=== PATIENT | male | born 1965 | race Caucasian/White ===

== ENCOUNTER 2017-02-09 18:08 | Emergency (ER) | payer BC ==
[~2017-02-09] VITALS: Ht 175.3 cm; Wt 59.0 kg
[~2017-02-09 18:08] MED LIST: ALPR.25T PO; ALPR0.5T7 PO; ALPR0.5T72 PO; ALPR1TAB7 PO; AMOX-358 PO; CITA20TA12 PO; CYCL10TA9 PO; DESV50TA PO; DOXY100C2 PO; DULO60CA58; DULO60CA58 PO; HYDR-2890 PO; HYDR-3583 PO; HYDR-3820 PO; HYDR-757 PO; IBP800T PO; IBUP800T26 PO; LORA2TAB PO; METH4TAB PO; MULT-608; MULT-963 PO; MULT-974 PO; NAPR500T3 PO; OXYC-12 PO; PRD50T PO; TRAZ-28 PO; VITAMIN B 12
--- NOTE | 2017-02-09 18:18 | ED Fall/Injury ---
General Chief Complaint: Trauma-Non Activation Stated Complaint: FALL Source: EMS Exam Limitations: no limitations History of Present Illness Time seen by provider: 18:13 Initial Comments Brought to ER in a rigid cervical collar by [facility] with reports of a fall. Apparently this fall was not witnessed but the heard a "thud" and when she entered the room she found Alice laying on the floor. He has been somnolent during his trip here according to paramedics. Patient is well-known to this emergency room with a history of alcohol intoxication and depression. Patient reports that he's had about 4 beers today. The patient himself has no complaints other than left ear pain which has been present since August. Occurred: just prior to arrival Severity: moderate Injuries/Pain Location: other Associated Symptoms (Fall): Denies Symptoms Allergies and Home Medications Allergies Coded Allergies: No Known Drug Allergies (Unverified , 06/06/14) Home Medications Lorazepam 2 Mg Tablet, 2 MG PO TID PRN for ANXIETY, (Reported) Multivitamin 1 Each Tablet, 1 TAB PO DAILY, (Reported) Trazodone HCl 50 Mg Tablet, 50 MG PO HS PRN for SLEEP, (Reported) Constitutional: see HPI Eyes: No Symptoms Reported Ears, Nose, Mouth, Throat: no symptoms reported Respiratory: no symptoms reported Cardiovascular: no symptoms reported Genitourinary: no symptoms reported Musculoskeletal: no symptoms reported Skin: no symptoms reported Psychiatric/Neurological: See HPI Past Htbdcpt-Mjenzg-Vpiawq Hx Patient Social History Drug of Choice: perscription medications only Type Used: Cigarettes Recent Hopitalizations: No Immunizations Up To Date Tetanus Booster (TDap): Unknown Seasonal Allergies Seasonal Allergies: No Surgeries HX Surgeries: Yes (UMBILICAL HERNIA REPAIR; CARDIAC CATH--NO INTERVENTION) Surgeries: Abdominal Respiratory Hx Respiratory Disorders: Yes Respiratory Disorders: COPD Cardiovascular Hx Cardiac Disorders: No (CARDIAC CATH--NO INTERVENTION) Neurological Hx Neurological Disorders: Yes Reproductive System Hx Reproductive Disorders: No Sexually Transmitted Disease: No HIV/AIDS: No Genitourinary Hx Genitourinary Disorders: No Gastrointestinal Hx Gastrointestinal Disorders: Yes (HEPATITIS C --NO TREATMENT; UMBILICAL HERNIA REPAIR) Gastrointestinal Disorders: Hepatitis Musculoskeletal Hx Musculoskeletal Disorders: Yes (CHRONIC NECK PAIN ) Endocrine Hx Endocrine Disorders: No HEENT HX ENT Disorders: No Cancer Hx Cancer: No Psychosocial Hx Psychiatric Problems: Yes (EXTENSIVE PSYCH, POLYSUBSTANCE ABUSE, MULTIPLE PSYCH ADMITS) Behavioral Health Disorders: Anxiety, Suicide Attempts, Depression Integumentary HX Skin/Integumentary Disorder: No Blood Transfusions Hx Blood Disorders: No Adverse Reaction to a Blood Tr: No Family Medical History Family Medial History: Patient reports no known family medical history. Physical Exam Vital Signs Vital Sign - Last 12Hours 02/09/17 18:11 Temp 98.0 Pulse 78 Resp 16 B/P (MAP) 117/80 Pulse Ox 98 Capillary Refill : General Appearance: WD/WN, no apparent distress HEENT: PERRL/EOMI, normal ENT inspection Neck: non-tender, other (patient is in a rigid cervical collar but denies any neck pain) Respiratory: normal breath sounds, no respiratory distress, no accessory muscle use Gastrointestinal: normal bowel sounds, non tender, soft Extremities: normal range of motion, non-tender Neurologic/Psychiatric: oriented x 3 Skin: normal color, warm/dry Omar Coma Score Best Eye Response: (4) Open Spontaneously Best Verbal Response: (5) Oriented Best Motor Response: (6) Obeys Commands [place] Total: 15 Progress/Results/Core Measures Results/Orders Lab Results Laboratory Tests Test 02/09/17 18:15 02/09/17 18:23 02/09/17 18:39 Range/Units Glucometer 93 70-110 MG/DL White Blood Count 8.2 4.3-11.0 10^3/uL Red Blood Count 4.18 L 4.35-5.85 10^6/uL Hemoglobin 13.7 13.3-17.7 G/DL Hematocrit 39 L 40-54 % Mean Corpuscular Volume 92 80-99 FL Mean Corpuscular Hemoglobin 33 25-34 PG Mean Corpuscular Hemoglobin Concent 36 32-36 G/DL Red Cell Distribution Width 13.2 10.0-14.5 % Platelet Count 265 130-400 10^3/uL Mean Platelet Volume 9.1 7.4-10.4 FL Neutrophils (%) (Auto) 49 42-75 % Lymphocytes (%) (Auto) 40 12-44 % Monocytes (%) (Auto) 7 0-12 % Eosinophils (%) (Auto) 2 0-10 % Basophils (%) (Auto) 1 0-10 % Neutrophils # (Auto) 4.0 1.8-7.8 X 10^3 Lymphocytes # (Auto) 3.3 1.0-4.0 X 10^3 Monocytes # (Auto) 0.6 0.0-1.0 X 10^3 Eosinophils # (Auto) 0.2 0.0-0.3 10^3/uL Basophils # (Auto) 0.1 0.0-0.1 10^3/uL Prothrombin Time 12.6 12.2-14.7 SEC INR Comment 1.0 0.8-1.4 Sodium Level 133 L 135-145 MMOL/L Potassium Level 3.8 3.6-5.0 MMOL/L Chloride Level 99 98-107 MMOL/L Carbon Dioxide Level 24 21-32 MMOL/L Anion Gap 10 5-14 MMOL/L Blood Urea Nitrogen 4 L 7-18 MG/DL Creatinine 0.73 0.60-1.30 MG/DL Estimat Glomerular Filtration Rate > 60 BUN/Creatinine Ratio 5 Glucose Level 88 70-105 MG/DL Calcium Level 8.2 L 8.5-10.1 MG/DL Total Bilirubin 0.3 0.1-1.0 MG/DL Aspartate Amino Transf (AST/SGOT) 18 5-34 U/L Alanine Aminotransferase (ALT/SGPT) 15 0-55 U/L Alkaline Phosphatase 37 L 40-136 U/L Troponin I < 0.30 <0.30 NG/ML Total Protein 6.1 L 6.4-8.2 G/DL Albumin 4.0 3.2-4.5 G/DL Serum Alcohol 251 H <10 MG/DL Urine Opiates Screen NEGATIVE NEGATIVE Urine Oxycodone Screen NEGATIVE NEGATIVE Urine Methadone Screen NEGATIVE NEGATIVE Urine Propoxyphene Screen NEGATIVE NEGATIVE Urine Barbiturates Screen NEGATIVE NEGATIVE Ur Tricyclic Antidepressants Screen NEGATIVE NEGATIVE Urine Phencyclidine Screen NEGATIVE NEGATIVE Urine Amphetamines Screen NEGATIVE NEGATIVE Urine Methamphetamines Screen NEGATIVE NEGATIVE Urine Benzodiazepines Screen POSITIVE H NEGATIVE Urine Cocaine Screen NEGATIVE NEGATIVE Urine Cannabinoids Screen NEGATIVE NEGATIVE My Orders Orders - PATRICIA GUNDERSON APRN Cbc With Automated Diff (02/09/17 18:12) Comprehensive Metabolic Panel (02/09/17 18:12) Ekg Tracing (02/09/17 18:12) Troponin I (02/09/17 18:12) Alcohol (02/09/17 18:12) Ct Head/Cervical Spine Wo (02/09/17 18:12) Drug Screen Stat (Urine) (02/09/17 18:20) Protime With Inr (02/09/17 18:35) Ns Iv 1000 Ml (Sodium Chloride 0.9%) (02/09/17 19:15) Vital Signs/I&O Vital Sign - Last 12Hours 02/09/17 18:11 Temp 98.0 Pulse 78 Resp 16 B/P (MAP) 117/80 Pulse Ox 98 Diagnostic Imaging Diagonstic Imaging: CT Comments NAME: ALICE [facility] REC#: [id number] PT STATUS: REG ER : 1965 PHYSICIAN: PATRICIA GUNDERSON EXTRACTIONS TECHNICIAN ADMIT DATE: 02/09/17/ER Draft Date of Exam:02/09/17 CT HEAD/CERVICAL SPINE WO PROCEDURE: CT head and CT cervical spine without contrast. TECHNIQUE: Multiple contiguous axial images were obtained through the brain and cervical spine without the use of intravenous contrast. Sagittal and coronal reformations through the cervical spine were then performed. INDICATION: Head and neck pain. Possible trauma. COMPARISON: Head and C-spine from 09/16/2016. FINDINGS: Head CT: No hyperdense mass or space-occupying mass. No hydrocephalus or midline shift. No evidence of territorial infarct. Basilar cisterns are patent. Small focus of encephalomalacia in the anterior right temporal region in the prior location of intraparenchymal hematoma. No focal scalp swelling. Nondisplaced mid occipital skull fracture has incompletely healed but remains anatomic in alignment. No new skull fracture. The paranasal sinuses and mastoid air cells are clear. Cervical spine CT: No acute fracture or traumatic malalignment. Mild degenerative disc space narrowing in the mid to lower cervical spine is similar, with small posterior disc ossified complex. No high-grade spinal stenosis by noncontrast CT. Multilevel neuroforaminal stenoses are unchanged and mild to moderate in severity due to uncovertebral joint hypertrophy. Airway is patent. No cervical lymphadenopathy. Visualized thyroid is normal. IMPRESSION: 1. No acute intracranial process. 2. No acute fracture or traumatic malalignment of the cervical spine. 3. Old nondisplaced fracture, midline of the occipital bone, is incompletely healed but remains in anatomic alignment. No new skull fracture. Dictated on workstation # [id number] Dict: 02/09/17 184 Trans: 02/09/17 1851 [facility] [id number] Interpreted by: RENO HILL MD Electronically signed by: Departure Communication Progress Notes 1929-cervical collar removed at this time. GCS 15. Patient is able to tell me what 2+ to his, when asked if he found a stamped addressed envelope on the sidewalk would he do with it, he replies "well I would take it to the post office". He denies any neck pain worse than his usual chronic neck pain and his alcohol level is only minimally elevated above his baseline alcohol level Impression Impression: Primary Impression: Alcoholism Additional Impression: Skull fracture with concussion with delayed healing Disposition: HOME, SELF-CARE Condition: Stable Departure-Patient Inst. Decision time for Depature: 19:25 Referrals: KARELY PONCE MD (PCP/Family) Primary Care Physician Patient Instructions: ALCOHOL AND SUBSTANCE ABUSE PATRICIA GUNDERSON APRN Feb 09, 2017 18:18
[2017-02-09 18:30] LABS: BASOPHILS # (AUTO) 0.1 10^3/uL (0.0-0.1); BASOPHILS % (AUTO) 1 % (0-10); EOSINOPHILS # (AUTO) 0.2 10^3/uL (0.0-0.3); EOSINOPHILS % (AUTO) 2 % (0-10); LYMPHOCYTES # (AUTO) 3.3 X 10^3 (1.0-4.0); LYMPHOCYTES % (AUTO) 40 % (12-44); MEAN CORPUSCULAR HEMOGLOBIN 33 PG (25-34); MEAN CORPUSCULAR HGB CONC 36 G/DL (32-36); MEAN CORPUSCULAR VOLUME 92 FL (80-99); MEAN PLATELET VOLUME 9.1 FL (7.4-10.4); MONOCYTES # (AUTO) 0.6 X 10^3 (0.0-1.0); MONOCYTES % (AUTO) 7 % (0-12); NEUTROPHILS % (AUTO) 49 % (42-75); PLATELET COUNT 265 10^3/uL (130-400); RED BLOOD COUNT 4.18 10^6/uL (4.35-5.85); RED CELL DISTRIBUTION WIDTH 13.2 % (10.0-14.5); WHITE BLOOD COUNT 8.2 10^3/uL (4.3-11.0)
[2017-02-09 18:43] LABS: PROTHROMBIN TIME PATIENT 12.6 SEC (12.2-14.7)
[2017-02-09 18:49] LABS: ALANINE AMINOTRANSFERASE 15 U/L (0-55); ALCOHOL 251 MG/DL (<10); ANION GAP 10 MMOL/L (5-14); ASPARTATE AMINO TRANSFERASE 18 U/L (5-34); BILIRUBIN,TOTAL 0.3 MG/DL (0.1-1.0); BLOOD UREA NITROGEN 4 MG/DL (7-18); BUN/CREATININE RATIO 5; CALCIUM 8.2 MG/DL (8.5-10.1); CARBON DIOXIDE 24 MMOL/L (21-32); CHLORIDE 99 MMOL/L (98-107); CREATININE SERUM 0.73 MG/DL (0.60-1.30); GFR ESTIMATED > 60; GLUCOSE 88 MG/DL (70-105); POTASSIUM 3.8 MMOL/L (3.6-5.0); SODIUM 133 MMOL/L (135-145); TOTAL PROTEIN 6.1 G/DL (6.4-8.2)
--- NOTE | 2017-02-09 18:51 | Diagnostic Imaging Report ---
PROCEDURE: CT head and CT cervical spine without contrast. TECHNIQUE: Multiple contiguous axial images were obtained through the brain and cervical spine without the use of intravenous contrast. Sagittal and coronal reformations through the cervical spine were then performed. INDICATION: Head and neck pain. Possible trauma. COMPARISON: Head and C-spine from 09/16/2016. FINDINGS: Head CT: No hyperdense mass or space-occupying mass. No hydrocephalus or midline shift. No evidence of territorial infarct. Basilar cisterns are patent. Small focus of encephalomalacia in the anterior right temporal region in the prior location of intraparenchymal hematoma. No focal scalp swelling. Nondisplaced mid occipital skull fracture has incompletely healed but remains anatomic in alignment. No new skull fracture. The paranasal sinuses and mastoid air cells are clear. Cervical spine CT: No acute fracture or traumatic malalignment. Mild degenerative disc space narrowing in the mid to lower cervical spine is similar, with small posterior disc ossified complex. No high-grade spinal stenosis by noncontrast CT. Multilevel neuroforaminal stenoses are unchanged and mild to moderate in severity due to uncovertebral joint hypertrophy. Airway is patent. No cervical lymphadenopathy. Visualized thyroid is normal. IMPRESSION: 1. No acute intracranial process. 2. No acute fracture or traumatic malalignment of the cervical spine. 3. Old nondisplaced fracture of the midline of the occipital bone, is incompletely healed but remains in anatomic alignment. No new skull fracture. Dictated by: Dictated on workstation # [id number]
[2017-02-09 18:55] LABS: TROPONIN I < 0.30 NG/ML (<0.30)
[2017-02-09] MEDS ORDERED: NS IV 1000 ML 1,000 ML IV SCH (19:15)
[2017-02-09 19:50] VITALS: BP 122/78
--- OUTSIDE RECORDS SUMMARY | 2017-02-25 13:42 | XMS REPORT | Continuity of Care Document ---
Author Author [facility] Organization [facility] Address Unknown Phone Unavailable Allergies Active Description Code Type Severity Reaction Onset Reported/Identified Relationship to Patient Clinical Status Yes No Known Drug Allergies [id number] Drug Allergy Unknown N/ A 06/06/2014 Medications Problems Date Dx Coded Attending Type Code Diagnosis Diagnosed By 02/02/2010 Ot 305.1 02/02/2010 Ot 682.3 02/02/2010 Ot 786.59 01/07/2011 Ot 789.09 02/04/2011 Ot 551.1 05/23/2011 Ot 305.1 TOBACCO USE DISORDER 05/23/2011 Ot 466.0 ACUTE BRONCHITIS 05/23/2011 Ot 786.05 SHORTNESS OF BREATH 12/23/2012 Ot 305.1 TOBACCO USE DISORDER 12/23/2012 Ot 786.50 CHEST PAIN NOS 02/20/2013 Ot 305.1 TOBACCO USE DISORDER 02/20/2013 Ot 786.50 CHEST PAIN NOS 02/20/2013 Ot 786.52 PAINFUL RESPIRATION 03/30/2013 KEERTHI BANKS DO Ot 719.43 JOINT PAIN-FOREARM 06/06/2014 ROSA WILLINGHAM Ot 338.29 06/06/2014 ROSA WILLINGHAM Ot 719.43 06/06/2014 ROSA WILLINGHAM Ot 847.0 06/06/2014 ROSA WILLINGHAM Ot 959.01 06/06/2014 ROSA WILLINGHAM Ot E815.1 09/05/2014 KIRSTEN CHERRY MD Ot 723.1 09/05/2014 DILIP SCHUSTER, KIRSTEN Cortes Ot 723.4 09/05/2014 DILIP SCHUSTER, KIRSTEN A Ot 723.5 10/31/2014 DILIP SCHUSTER, KIRSTEN A Ot 723.1 11/01/2014 DILIP SCHUSTER, KIRSTEN A Ot 723.1 12/12/2014 DILIP SCHUSTER, KIRSTEN A Ot 723.1 12/12/2014 PATRICIA GUNDERSON APRN Ot 723.4 12/12/2014 PATRICIA GUNDERSON CYBER ENGINEER Ot 784.2 12/22/2014 ROSARIO SCHUSTER, KARELY R Ot 303.00 12/22/2014 ROSARIO SCHUSTER, KARELY R Ot 305.1 12/22/2014 ROSARIO SCHUSTER, KARELY R Ot 466.0 01/04/2015 DILIP SCHUSTER, KIRSTEN A Ot 723.1 01/05/2015 DILIP SCHUSTER, KIRSTEN A Ot 723.1 01/06/2015 DILIP SCHUSTER, KIRSTEN A Ot 723.1 01/12/2015 DILIP SCHUSTER, KIRSTEN A Ot 723.1 02/27/2015 PENNY SCHUSTER, LIAM Sigala Ot 305.1 TOBACCO USE DISORDER 02/27/2015 PENNY SCHUSTER, LIAM Sigala Ot 786.50 CHEST PAIN NOS 02/27/2015 PENNY SCHUSTER, LIAM Sigala Ot 802.0 NASAL BONE FX-CLOSED 02/27/2015 LIAM FRANCIS MD Ot 920 CONTUSION FACE/SCALP/NCK 02/27/2015 LIAM FRANCIS MD Ot 922.1 CONTUSION OF CHEST WALL 02/27/2015 LIAM FRANCIS MD Ot E000.8 OTHER EXTERNAL CAUSE STATUS 02/27/2015 LIAM FRANCIS MD Ot E849.0 ACCIDENT IN HOME 02/27/2015 LIAM FRANCIS MD Ot E888.9 FALL NOS 02/27/2015 Ot 553.1 02/27/2015 Ot V72.63 02/27/2015 Ot V74.8 02/27/2015 Ot 729.5 02/27/2015 Ot 729.81 02/27/2015 Ot V15.51 03/15/2015 DILIP SCHUSTER, KIRSTEN A Ot 723.1 06/26/2015 ROSARIO SCHUSTER, KARELY R Ot 300.00 ANXIETY STATE NOS 06/26/2015 KARELY PONCE MD R Ot 305.00 ALCOHOL ABUSE-UNSPEC 06/26/2015 KARELY PONCE MD R Ot 311 DEPRESSIVE DISORDER NEC 06/26/2015 KARELY PONCE MD Ot 496 CHR AIRWAY OBSTRUCT NEC 06/26/2015 KARELY PONCE MD R Ot V62.84 SUICIDAL IDEATION 01/15/2016 KEERTHI BANKS DO Ot F12.10 CANNABIS ABUSE, UNCOMPLICATED 01/15/2016 KEERTHI BANKS DO Ot F17.210 NICOTINE DEPENDENCE, CIGARETTES, UNCOMPL 01/15/2016 KEERTHI BANKS DO Ot R10.31 RIGHT LOWER QUADRANT PAIN 01/15/2016 KEERTHI BANKS DO Ot R59.0 LOCALIZED ENLARGED LYMPH NODES 01/25/2016 Ot 553.1 01/25/2016 Ot V72.63 01/25/2016 Ot V74.8 01/25/2016 Ot 729.5 01/25/2016 Ot 729.81 01/25/2016 Ot V15.51 02/12/2016 ROSARIO SCHUSTER, KARELY Reyes Ot N40.0 02/12/2016 ROSARIO SCHUSTER, KARELY R Ot R10.31 02/12/2016 ROSARIO SCHUSTER, KARELY R Ot S39.91XA 02/12/2016 ROSARIO SCHUSTER, KARELY Reyes Ot Y93.89 06/09/2016 DERIC OLEA DO Ot B19.20 UNSPECIFIED VIRAL HEPATITIS C WITHOUT HE 06/09/2016 DERIC OLEA DO Ot F10.220 ALCOHOL DEPENDENCE WITH INTOXICATION , UN 06/09/2016 DERIC OLEA DO Ot F32.9 MAJOR DEPRESSIVE DISORDER, SINGLE EPISOD 06/09/2016 DERIC OLEA DO Ot F41.9 ANXIETY DISORDER, UNSPECIFIED 06/09/2016 DERIC OLEA DO Ot J44.9 CHRONIC OBSTRUCTIVE PULMONARY DISEASE , U 06/09/2016 DERIC OLEA DO Ot M54.9 DORSALGIA, UNSPECIFIED 06/09/2016 DERIC OLEA DO Ot R45.851 SUICIDAL IDEATIONS 06/09/2016 DERIC OLEA DO Ot Y90.7 BLOOD ALCOHOL LEVEL OF 200-239 MG/100 ML 08/07/2016 ROSARIO SCHUSTER, KARELY Reyes Ot B19.20 UNSPECIFIED VIRAL HEPATITIS C WITHOUT HE 08/07/2016 ROSARIO SCHUSTER, KARELY Reyes Ot F10.229 ALCOHOL DEPENDENCE WITH INTOXICATION, UN 08/07/2016 ROSARIO SCHUSTER, KARELY Reyes Ot F17.210 NICOTINE DEPENDENCE, CIGARETTES, UNCOMPL 08/07/2016 ROSARIO SCHUSTER, KARELY Reyes Ot J44.9 CHRONIC OBSTRUCTIVE PULMONARY DISEASE, U 08/07/2016 ROSARIO SCHUSTER, KARELY Reyes Ot R45.851 SUICIDAL IDEATIONS 08/07/2016 KARELY PONCE MD Ot Y90.6 BLOOD ALCOHOL LEVEL OF 120-199 MG/100 ML 09/12/2016 SHANE DE LA CRUZ DOI Ot B19.20 UNSPECIFIED VIRAL HEPATITIS C WITHOUT HE 09/12/2016 SHANE DE LA CRUZ DOI Ot F17.210 NICOTINE DEPENDENCE, CIGARETTES, UNCOMPL 09/12/2016 DE LA CRUZSHANE GARCIA DOI Ot F32.9 MAJOR DEPRESSIVE DISORDER, SINGLE EPISOD 09/12/2016 DE LA CRUZ SHANEI Ot F41.9 ANXIETY DISORDER, UNSPECIFIED 09/12/2016 DE LA CRUZ REMA Ot J44.9 CHRONIC OBSTRUCTIVE PULMONARY DISEASE, U 09/12/2016 DE LA CRUZ REMA Ot T42.4X1A POISONING BY BENZODIAZEPINES, ACCIDENTAL 09/12/2016 DE LA CRUZ REMA Ot T43.201A POISONING BY UNSP ANTIDEPRESSANTS, ACCID 09/12/2016 DE LA CRUZJOSE DE LEON REMA Ot T43.211A POISN BY SLCTV SEROTON/NOREPINEPH REUP I 09/12/2016 JONO DE LEON REMA Ot T51.0X1A TOXIC EFFECT OF ETHANOL, ACCIDENTAL (UNI 09/13/2016 Ot 729.5 PAIN IN LIMB 09/13/2016 Ot 729.81 SWELLING OF LIMB 09/13/2016 Ot V15.51 PERSONAL HISTORY OF TRAUMATIC FRACTURE 09/13/2016 KARELY PONCE MD Ot N40.0 ENLARGED PROSTATE WITHOUT LOWER URINARY 09/13/2016 KARELY PONCE MD Ot R10.31 RIGHT LOWER QUADRANT PAIN 09/13/2016 KARELY PONCE MD Ot S39.91XA UNSPECIFIED INJURY OF ABDOMEN, INITIAL E 09/13/2016 KARELY PONCE MD Ot Y93.89 ACTIVITY, OTHER SPECIFIED 09/16/2016 Ot 729.5 PAIN IN LIMB 09/16/2016 Ot 729.81 SWELLING OF LIMB 09/16/2016 Ot V15.51 PERSONAL HISTORY OF TRAUMATIC FRACTURE 09/16/2016 KARELY PONCE MD Ot N40.0 ENLARGED PROSTATE WITHOUT LOWER URINARY 09/16/2016 KARELY PONCE MD Ot R10.31 RIGHT LOWER QUADRANT PAIN 09/16/2016 KARELY PONCE MD Ot S39.91XA UNSPECIFIED INJURY OF ABDOMEN, INITIAL E 09/16/2016 ROSARIO SCHUSTER, KARELY R Ot Y93.89 ACTIVITY, OTHER SPECIFIED 09/16/2016 PATRICIA GUNDERSON APRN Ot F17.210 NICOTINE DEPENDENCE, CIGARETTES, UNCOMPL 09/16/2016 PATRICIA GUNDERSON APRN Ot J44.9 CHRONIC OBSTRUCTIVE PULMONARY DISEASE, U 09/16/2016 PATRICIA GUNDERSON APRN Ot S02.11GA OTHER FRACTURE OF OCCIPUT, RIGHT SIDE, I 09/16/2016 PATRICIA GUNDERSON APRN Ot S02.19XA OTH FRACTURE OF BASE OF SKULL, INIT FOR 09/16/2016 PATRICIA GUNDERSON APRN Ot S06.340A TRAUM HEMOR RIGHT CEREBRUM W/O LOSS OF C 09/16/2016 PATRICIA GUNDERSON APRN Ot S22.32XA FRACTURE OF ONE RIB, LEFT SIDE, INIT FOR 09/16/2016 PATRICIA GUNDERSON APRN Ot S29.9XXA UNSPECIFIED INJURY OF THORAX, INITIAL EN 09/16/2016 PATRICIA GUNDERSON APRN Ot W18.09XA STRIKING AGAINST OTH OBJECT W SUBSEQUENT 09/16/2016 PATRICIA GUNDERSON APRN Ot Y92.[address] [facility] PR[facility] 09/16/2016 PATRICIA GUNDERSON APRN Ot Y93.9 ACTIVITY, UNSPECIFIED 09/16/2016 PATRICIA GUNDERSON APRN Ot Y99.8 OTHER EXTERNAL CAUSE STATUS 09/17/2016 PATRICIA GUNDERSON APRN Ot F17.210 NICOTINE DEPENDENCE, CIGARETTES, UNCOMPL 09/17/2016 PATRICIA GUNDERSON APRN Ot J44.9 CHRONIC OBSTRUCTIVE PULMONARY DISEASE, U 09/17/2016 PATRICIA GUNDERSON APRN Ot S02.11GA OTHER FRACTURE OF OCCIPUT, RIGHT SIDE, I 09/17/2016 PATRICIA GUNDERSON APRN Ot S02.19XA OTH FRACTURE OF BASE OF SKULL, INIT FOR 09/17/2016 PATRICIA GUNDERSON APRN Ot S06.340A TRAUM HEMOR RIGHT CEREBRUM W/O LOSS OF C 09/17/2016 PATRICIA GUNDERSON APRN Ot S22.32XA FRACTURE OF ONE RIB, LEFT SIDE, INIT FOR 09/17/2016 GUNDERSON, PETER J CYBER ENGINEER Ot S29.9XXA UNSPECIFIED INJURY OF THORAX, INITIAL EN 09/17/2016 PATRICIA GUNDERSON CYBER ENGINEER Ot W18.09XA STRIKING AGAINST OTH OBJECT W SUBSEQUENT 09/17/2016 PATRICIA GUNDERSON CYBER ENGINEER Ot Y92.[address] [facility] NON-[facility] ( PRIVATE 09/17/2016 PATRICIA GUNDERSON CYBER ENGINEER Ot Y93.9 ACTIVITY, UNSPECIFIED 09/17/2016 PATRICIA GUNDERSON CYBER ENGINEER Ot Y99.8 OTHER EXTERNAL CAUSE STATUS 01/22/2017 Ot 729.81 SWELLING OF LIMB 01/22/2017 Ot V15.51 PERSONAL HISTORY OF TRAUMATIC FRACTURE 01/22/2017 KARELY PONCE MD R Ot N40.0 ENLARGED PROSTATE WITHOUT LOWER URINARY 01/22/2017 KARELY PONCE MD R Ot R10.31 RIGHT LOWER QUADRANT PAIN 01/22/2017 KARELY PONCE MD R Ot S39.91XA UNSPECIFIED INJURY OF ABDOMEN, INITIAL E 01/22/2017 KARELY PONCE MD R Ot Y93.89 ACTIVITY, OTHER SPECIFIED 01/22/2017 KARELY PONCE MD R Ot N40.0 ENLARGED PROSTATE WITHOUT LOWER URINARY 01/22/2017 KARELY PONCE MD R Ot R10.31 RIGHT LOWER QUADRANT PAIN 01/22/2017 KARELY PONCE MD R Ot S39.91XA UNSPECIFIED INJURY OF ABDOMEN, INITIAL E 01/22/2017 KARELY PONCE MD R Ot Y93.89 ACTIVITY, OTHER SPECIFIED 01/22/2017 Ot 729.81 SWELLING OF LIMB 01/22/2017 Ot V15.51 PERSONAL HISTORY OF TRAUMATIC FRACTURE 01/22/2017 KARELY PONCE MD R Ot N40.0 ENLARGED PROSTATE WITHOUT LOWER URINARY 01/22/2017 KARELY PONCE MD R Ot R10.31 RIGHT LOWER QUADRANT PAIN 01/22/2017 KARELY PONCE MD R Ot S39.91XA UNSPECIFIED INJURY OF ABDOMEN, INITIAL E 01/22/2017 KARELY PONCE MD R Ot Y93.89 ACTIVITY, OTHER SPECIFIED 02/09/2017 Ot 729.81 SWELLING OF LIMB 02/09/2017 Ot V15.51 PERSONAL HISTORY OF TRAUMATIC FRACTURE 02/09/2017 KARELY PONCE MD R Ot N40.0 ENLARGED PROSTATE WITHOUT LOWER URINARY 02/09/2017 ROSARIO SCHUSTER, KARELY R Ot R10.31 RIGHT LOWER QUADRANT PAIN 02/09/2017 ROSARIO SCHUSTER, KARELY R Ot S39.91XA UNSPECIFIED INJURY OF ABDOMEN, INITIAL E 02/09/2017 ROSARIO SCHUSTER, KARELY R Ot Y93.89 ACTIVITY, OTHER SPECIFIED 02/09/2017 PATRICIA GUNDERSON APRN Ot F10.229 ALCOHOL DEPENDENCE WITH INTOXICATION, UN 02/09/2017 PATRICIA GUNDERSON APRN Ot J44.9 CHRONIC OBSTRUCTIVE PULMONARY DISEASE, U 02/09/2017 PATRICIA GUNDERSON APRN Ot S02.118G OTHER FRACTURE OF OCCIPUT, UNSPECIFIED S 02/09/2017 PATRICIA GUNDERSON APRN Ot S06.0X0A CONCUSSION WITHOUT LOSS OF CONSCIOUSNESS 02/09/2017 PATRICIA GUNDERSON APRN Ot S09.90XA UNSPECIFIED INJURY OF HEAD, INITIAL ENCO 02/09/2017 PATRICIA GUNDERSON APRN Ot W01.0XXA FALL SAME LEV FROM SLIP/TRIP W/O STRIKE 02/09/2017 PATRICIA GUNDERSON APRN Ot Y90.8 BLOOD ALCOHOL LEVEL OF 240 MG/100 ML OR 02/09/2017 PATRICIA GUNDERSON APRN Ot Y92.[address] [facility] ( PRIVATE 02/09/2017 PATRICIA GUNDERSON APRN Ot Y99.8 OTHER EXTERNAL CAUSE STATUS 02/09/2017 PATRICIA GUNDERSON APRN Ot Z79.899 OTHER BRIDGE WELDER (CURRENT) DRUG THERAPY 02/11/2017 PATRICIA GUNDERSON APRN Ot F10.229 ALCOHOL DEPENDENCE WITH INTOXICATION, UN 02/11/2017 PATRICIA GUNDERSON APRN Ot J44.9 CHRONIC OBSTRUCTIVE PULMONARY DISEASE, U 02/11/2017 PATRICIA GUNDERSON APRN Ot S02.118G OTHER FRACTURE OF OCCIPUT, UNSPECIFIED S 02/11/2017 PATRICIA GUNDERSON APRN Ot S06.0X0A CONCUSSION WITHOUT LOSS OF CONSCIOUSNESS 02/11/2017 PATRICIA GUNDERSON APRN Ot S09.90XA UNSPECIFIED INJURY OF HEAD, INITIAL ENCO 02/11/2017 PATRICIA GUNDERSON APRN Ot W01.0XXA FALL SAME LEV FROM SLIP/TRIP W/O STRIKE 02/11/2017 PATRICIA GUNDERSON APRN Ot Y90.8 BLOOD ALCOHOL LEVEL OF 240 MG/100 ML OR 02/11/2017 GUNDERSONPATRICIA LI Cruzito CYBER ENGINEER Ot Y92.[address] [facility] [facility] NON-INSTITUT ( PRIVATE 02/11/2017 PATRICIA GUNDERSON APRN Ot Y99.8 OTHER EXTERNAL CAUSE STATUS 02/11/2017 GUNDERSONPATRICIA Cruzito LEDESMA Ot Z79.899 OTHER PENITENTIARY (CURRENT) DRUG THERAPY Procedures Code Description Performed By Performed On 94.62 ALCOHOL DETOXIFICATION 06/24/2015 Results Test Result Range Complete blood count (CBC) with automated white blood cell (WBC) differential - 08/06/16 18:53 Blood leukocytes automated count (number/volume) 8.9 10*3/ uL 4.3-11.0 Blood erythrocytes automated count (number/volume) 3.89 10*6 /uL 4.35-5.85 Venous blood hemoglobin measurement (mass/volume) 13.2 g/dL 13.3-17.7 Blood hematocrit (volume fraction) 37 % 40-54 Automated erythrocyte mean corpuscular volume 96 [foz_us] 80-99 Automated erythrocyte mean corpuscular hemoglobin (mass per erythrocyte) 34 pg 25-34 Automated erythrocyte mean corpuscular hemoglobin concentration measurement ( mass/volume) 36 g/dL 32-36 Automated erythrocyte distribution width ratio 12.9 % 10.0-14.5 Automated blood platelet count (count/volume) 213 10*3/uL 130-400 Automated blood platelet mean volume measurement 9.0 [foz_us ] 7.4-10.4 Automated blood neutrophils/100 leukocytes 48 % 42-75 Automated blood lymphocytes/100 leukocytes 38 % 12-44 Blood monocytes/100 leukocytes 11 % 0-12 Automated blood eosinophils/100 leukocytes 2 % 0-10 Automated blood basophils/100 leukocytes 1 % 0-10 Blood neutrophils automated count (number/volume) 4.3 10*3 1.8-7.8 Blood lymphocytes automated count (number/volume) 3.4 10*3 1.0-4.0 Blood monocytes automated count (number/volume) 1.0 10*3 0.0-1.0 Automated eosinophil count 0.2 10*3/uL 0.0-0.3 Automated blood basophil count (count/volume) 0.1 10*3/uL 0.0-0.1 Comprehensive metabolic panel - 08/06/16 18:53 Serum or plasma sodium measurement (moles/volume) 133 mmol/ L 135-145 Serum or plasma potassium measurement (moles/volume) 3.6 mmol/L 3.6-5.0 Serum or plasma chloride measurement (moles/volume) 101 mmol /L 98-107 Carbon dioxide 23 mmol/L 21-32 Serum or plasma anion gap determination (moles/volume) 9 mmol/L 5-14 Serum or plasma urea nitrogen measurement (mass/volume) 9 mg /dL 7-18 Serum or plasma creatinine measurement (mass/volume) 0.72 mg /dL 0.60-1.30 Serum or plasma urea nitrogen/creatinine mass ratio 13 NRG Serum or plasma creatinine measurement with calculation of estimated glomerular filtration rate > NRG Serum or plasma glucose measurement (mass/volume) 89 mg/dL 70-105 Serum or plasma calcium measurement (mass/volume) 8.9 mg/dL 8.5-10.1 Serum or plasma total bilirubin measurement (mass/volume) 0.4 mg/dL 0.1-1.0 Serum or plasma alkaline phosphatase measurement (enzymatic activity/volume) 33 U/L 40-136 Serum or plasma aspartate aminotransferase measurement (enzymatic activity/ volume) 20 U/L 5-34 Serum or plasma alanine aminotransferase measurement (enzymatic activity/volume ) 19 U/L 0-55 Serum or plasma protein measurement (mass/volume) 6.2 g/dL 6.4-8.2 Serum or plasma albumin measurement (mass/volume) 4.1 g/dL 3.2-4.5 Serum or plasma salicylates measurement (mass/volume) - 08/06/16 18:53 Serum or plasma salicylates measurement (mass/volume) < mg/ dL 5.0-20.0 Serum or plasma acetaminophen measurement (mass/volume) - 08/06/16 18:53 Serum or plasma acetaminophen measurement (mass/volume) < ug /mL 10-30 Serum or plasma ethanol measurement (mass/volume) - 08/06/16 18:53 Serum or plasma ethanol measurement (mass/volume) 177 mg/dL <10 Complete urinalysis with reflex to culture - 08/06/16 18:55 Urine color determination YELLOW NRG Urine clarity determination CLEAR NRG Urine pH measurement by test strip 7 5- 9 Specific gravity of urine by test strip 1.005 1.016-1.022 Urine protein assay by test strip, semi-quantitative NEGATIVE NEGATIVE Urine glucose detection by automated test strip NEGATIVE NEGATIVE Erythrocytes detection in urine sediment by light microscopy NEGATIVE NEGATIVE Urine ketones detection by automated test strip NEGATIVE NEGATIVE Urine nitrite detection by test strip NEGATIVE NEGATIVE Urine total bilirubin detection by test strip NEGATIVE NEGATIVE Urine urobilinogen measurement by automated test strip (mass/volume) NORMAL NORMAL Urine leukocyte esterase detection by dipstick NEGATIVE NEGATIVE Automated urine sediment erythrocyte count by microscopy (number/high power field) NONE NRG Automated urine sediment leukocyte count by microscopy (number/high power field ) NONE NRG Bacteria detection in urine sediment by light microscopy NONE NRG Squamous epithelial cells detection in urine sediment by light microscopy RARE NRG Crystals detection in urine sediment by light microscopy NONE NRG Casts detection in urine sediment by light microscopy NONE NRG Mucus detection in urine sediment by light microscopy NEGATIVE NRG Complete urinalysis with reflex to culture NO NRG Urine drug screening test - 08/06/16 18:55 Urine phencyclidine detection by screening method NEGATIVE NEGATIVE Urine benzodiazepines detection by screening method POSITIVE NEGATIVE Urine cocaine detection NEGATIVE NEGATIVE Urine amphetamines detection by screening method NEGATIVE NEGATIVE Urine methamphetamine detection by screening method NEGATIVE NEGATIVE Urine cannabinoids detection by screening method NEGATIVE NEGATIVE Urine opiates detection by screening method POSITIVE NEGATIVE Urine barbiturates detection NEGATIVE NEGATIVE Screening urine tricyclic antidepressants detection NEGATIVE NEGATIVE Urine methadone detection by screening method NEGATIVE NEGATIVE Urine oxycodone detection NEGATIVE NEGATIVE Urine propoxyphene detection NEGATIVE NEGATIVE Urine buprenophrine screen NEGATIVE NEGATIVE Methicillin resistant Staphylococcus aureus (MRSA) screening culture - 21:00 MRSA SCREEN RESULT MRSA ISOLATED NRG Complete blood count (CBC) with automated white blood cell (WBC) differential - 08/07/16 04:05 Blood leukocytes automated count (number/volume) 6.3 10*3/ uL 4.3-11.0 Blood erythrocytes automated count (number/volume) 4.13 10*6 /uL 4.35-5.85 Venous blood hemoglobin measurement (mass/volume) 13.9 g/dL 13.3-17.7 Blood hematocrit (volume fraction) 40 % 40-54 Automated erythrocyte mean corpuscular volume 96 [foz_us] 80-99 Automated erythrocyte mean corpuscular hemoglobin (mass per erythrocyte) 34 pg 25-34 Automated erythrocyte mean corpuscular hemoglobin concentration measurement ( mass/volume) 35 g/dL 32-36 Automated erythrocyte distribution width ratio 13.1 % 10.0-14.5 Automated blood platelet count (count/volume) 239 10*3/uL 130-400 Automated blood platelet mean volume measurement 9.5 [foz_us ] 7.4-10.4 Automated blood neutrophils/100 leukocytes 42 % 42-75 Automated blood lymphocytes/100 leukocytes 40 % 12-44 Blood monocytes/100 leukocytes 13 % 0-12 Automated blood eosinophils/100 leukocytes 5 % 0-10 Automated blood basophils/100 leukocytes 1 % 0-10 Blood neutrophils automated count (number/volume) 2.6 10*3 1.8-7.8 Blood lymphocytes automated count (number/volume) 2.5 10*3 1.0-4.0 Blood monocytes automated count (number/volume) 0.8 10*3 0.0-1.0 Automated eosinophil count 0.3 10*3/uL 0.0-0.3 Automated blood basophil count (count/volume) 0.1 10*3/uL 0.0-0.1 Whole blood basic metabolic panel - 08/07/16 04:05 Serum or plasma sodium measurement (moles/volume) 140 mmol/ L 135-145 Serum or plasma potassium measurement (moles/volume) 4.6 mmol/L 3.6-5.0 Serum or plasma chloride measurement (moles/volume) 109 mmol /L 98-107 Carbon dioxide 22 mmol/L 21-32 Serum or plasma anion gap determination (moles/volume) 9 mmol/L 5-14 Serum or plasma urea nitrogen measurement (mass/volume) 7 mg /dL 7-18 Serum or plasma creatinine measurement (mass/volume) 0.70 mg /dL 0.60-1.30 Serum or plasma urea nitrogen/creatinine mass ratio 10 NRG Serum or plasma creatinine measurement with calculation of estimated glomerular filtration rate > NRG Serum or plasma glucose measurement (mass/volume) 94 mg/dL 70-105 Serum or plasma calcium measurement (mass/volume) 8.6 mg/dL 8.5-10.1 Serum or plasma phosphate measurement (mass/volume) - 08/07/16 04:05 Serum or plasma phosphate measurement (mass/volume) 4.0 mg/ dL 2.3-4.7 Magnesium - 08/07/16 04:05 Magnesium 2.2 mg/dL 1.8-2.4 Complete blood count (CBC) with automated white blood cell (WBC) differential - 09/11/16 18:19 Blood leukocytes automated count (number/volume) 9.4 10*3/ uL 4.3-11.0 Blood erythrocytes automated count (number/volume) 4.24 10*6 /uL 4.35-5.85 Venous blood hemoglobin measurement (mass/volume) 14.4 g/dL 13.3-17.7 Blood hematocrit (volume fraction) 41 % 40-54 Automated erythrocyte mean corpuscular volume 96 [foz_us] 80-99 Automated erythrocyte mean corpuscular hemoglobin (mass per erythrocyte) 34 pg 25-34 Automated erythrocyte mean corpuscular hemoglobin concentration measurement ( mass/volume) 35 g/dL 32-36 Automated erythrocyte distribution width ratio 13.5 % 10.0-14.5 Automated blood platelet count (count/volume) 256 10*3/uL 130-400 Automated blood platelet mean volume measurement 8.9 [foz_us ] 7.4-10.4 Automated blood neutrophils/100 leukocytes 82 % 42-75 Automated blood lymphocytes/100 leukocytes 12 % 12-44 Blood monocytes/100 leukocytes 6 % 0-12 Automated blood eosinophils/100 leukocytes 0 % 0-10 Automated blood basophils/100 leukocytes 0 % 0-10 Blood neutrophils automated count (number/volume) 7.7 10*3 1.8-7.8 Blood lymphocytes automated count (number/volume) 1.1 10*3 1.0-4.0 Blood monocytes automated count (number/volume) 0.6 10*3 0.0-1.0 Automated eosinophil count 0.0 10*3/uL 0.0-0.3 Automated blood basophil count (count/volume) 0.0 10*3/uL 0.0-0.1 Comprehensive metabolic panel - 09/11/16 18:19 Serum or plasma sodium measurement (moles/volume) 135 mmol/ L 135-145 Serum or plasma potassium measurement (moles/volume) 4.1 mmol/L 3.6-5.0 Serum or plasma chloride measurement (moles/volume) 101 mmol /L 98-107 Carbon dioxide 24 mmol/L 21-32 Serum or plasma anion gap determination (moles/volume) 10 mmol/L 5-14 Serum or plasma urea nitrogen measurement (mass/volume) 9 mg /dL 7-18 Serum or plasma creatinine measurement (mass/volume) 0.71 mg /dL 0.60-1.30 Serum or plasma urea nitrogen/creatinine mass ratio 13 NRG Serum or plasma creatinine measurement with calculation of estimated glomerular filtration rate > NRG Serum or plasma glucose measurement (mass/volume) 128 mg/dL 70-105 Serum or plasma calcium measurement (mass/volume) 9.2 mg/dL 8.5-10.1 Serum or plasma total bilirubin measurement (mass/volume) 0.3 mg/dL 0.1-1.0 Serum or plasma alkaline phosphatase measurement (enzymatic activity/volume) 30 U/L 40-136 Serum or plasma aspartate aminotransferase measurement (enzymatic activity/ volume) 18 U/L 5-34 Serum or plasma alanine aminotransferase measurement (enzymatic activity/volume ) 25 U/L 0-55 Serum or plasma protein measurement (mass/volume) 7.0 g/dL 6.4-8.2 Serum or plasma albumin measurement (mass/volume) 4.5 g/dL 3.2-4.5 Serum or plasma salicylates measurement (mass/volume) - 09/11/16 18:19 Serum or plasma salicylates measurement (mass/volume) < mg/ dL 5.0-20.0 Serum or plasma acetaminophen measurement (mass/volume) - 09/11/16 18:19 Serum or plasma acetaminophen measurement (mass/volume) < ug /mL 10-30 Serum or plasma ethanol measurement (mass/volume) - 09/11/16 18:19 Serum or plasma ethanol measurement (mass/volume) 181 mg/dL <10 Serum or plasma thyrotropin measurement by detection limit <=0.05 miu/l (units/ volume) - 09/11/16 18:19 Serum or plasma thyrotropin measurement by detection limit <=0.05 miu/l (units/ volume) 0.45 u[iU]/mL 0.35-4.94 Complete urinalysis with reflex to culture - 09/11/16 18:30 Urine color determination YELLOW NRG Urine clarity determination CLEAR NRG Urine pH measurement by test strip 7 5- 9 Specific gravity of urine by test strip 1.005 1.016-1.022 Urine protein assay by test strip, semi-quantitative NEGATIVE NEGATIVE Urine glucose detection by automated test strip NEGATIVE NEGATIVE Erythrocytes detection in urine sediment by light microscopy NEGATIVE NEGATIVE Urine ketones detection by automated test strip NEGATIVE NEGATIVE Urine nitrite detection by test strip NEGATIVE NEGATIVE Urine total bilirubin detection by test strip NEGATIVE NEGATIVE Urine urobilinogen measurement by automated test strip (mass/volume) NORMAL NORMAL Urine leukocyte esterase detection by dipstick NEGATIVE NEGATIVE Automated urine sediment erythrocyte count by microscopy (number/high power field) NONE NRG Automated urine sediment leukocyte count by microscopy (number/high power field ) NONE NRG Bacteria detection in urine sediment by light microscopy NONE NRG Squamous epithelial cells detection in urine sediment by light microscopy RARE NRG Crystals detection in urine sediment by light microscopy NONE NRG Casts detection in urine sediment by light microscopy NONE NRG Mucus detection in urine sediment by light microscopy NEGATIVE NRG Complete urinalysis with reflex to culture NO NRG Urine drug screening test - 09/11/16 18:30 Urine phencyclidine detection by screening method NEGATIVE NEGATIVE Urine benzodiazepines detection by screening method POSITIVE NEGATIVE Urine cocaine detection NEGATIVE NEGATIVE Urine amphetamines detection by screening method NEGATIVE NEGATIVE Urine methamphetamine detection by screening method NEGATIVE NEGATIVE Urine cannabinoids detection by screening method NEGATIVE NEGATIVE Urine opiates detection by screening method NEGATIVE NEGATIVE Urine barbiturates detection NEGATIVE NEGATIVE Screening urine tricyclic antidepressants detection NEGATIVE NEGATIVE Urine methadone detection by screening method NEGATIVE NEGATIVE Urine oxycodone detection NEGATIVE NEGATIVE Urine propoxyphene detection NEGATIVE NEGATIVE Urine buprenophrine screen NEGATIVE NEGATIVE Methicillin resistant Staphylococcus aureus (MRSA) screening culture - 02:00 Methicillin resistant Staphylococcus aureus (MRSA) screening culture NEG NRG Complete blood count (CBC) with automated white blood cell (WBC) differential - 09/12/16 03:22 Blood leukocytes automated count (number/volume) 11.2 10*3/ uL 4.3-11.0 Blood erythrocytes automated count (number/volume) 4.32 10*6 /uL 4.35-5.85 Venous blood hemoglobin measurement (mass/volume) 14.7 g/dL 13.3-17.7 Blood hematocrit (volume fraction) 42 % 40-54 Automated erythrocyte mean corpuscular volume 97 [foz_us] 80-99 Automated erythrocyte mean corpuscular hemoglobin (mass per erythrocyte) 34 pg 25-34 Automated erythrocyte mean corpuscular hemoglobin concentration measurement ( mass/volume) 35 g/dL 32-36 Automated erythrocyte distribution width ratio 13.8 % 10.0-14.5 Automated blood platelet count (count/volume) 280 10*3/uL 130-400 Automated blood platelet mean volume measurement 9.5 [foz_us ] 7.4-10.4 Automated blood neutrophils/100 leukocytes 53 % 42-75 Automated blood lymphocytes/100 leukocytes 31 % 12-44 Blood monocytes/100 leukocytes 14 % 0-12 Automated blood eosinophils/100 leukocytes 1 % 0-10 Automated blood basophils/100 leukocytes 0 % 0-10 Blood neutrophils automated count (number/volume) 6.0 10*3 1.8-7.8 Blood lymphocytes automated count (number/volume) 3.5 10*3 1.0-4.0 Blood monocytes automated count (number/volume) 1.6 10*3 0.0-1.0 Automated eosinophil count 0.2 10*3/uL 0.0-0.3 Automated blood basophil count (count/volume) 0.1 10*3/uL 0.0-0.1 Comprehensive metabolic panel - 09/12/16 03:22 Serum or plasma sodium measurement (moles/volume) 141 mmol/ L 135-145 Serum or plasma potassium measurement (moles/volume) 3.9 mmol/L 3.6-5.0 Serum or plasma chloride measurement (moles/volume) 108 mmol /L 98-107 Carbon dioxide 28 mmol/L 21-32 Serum or plasma anion gap determination (moles/volume) 5 mmol/L 5-14 Serum or plasma urea nitrogen measurement (mass/volume) 11 mg/dL 7-18 Serum or plasma creatinine measurement (mass/volume) 0.84 mg /dL 0.60-1.30 Serum or plasma urea nitrogen/creatinine mass ratio 13 NRG Serum or plasma creatinine measurement with calculation of estimated glomerular filtration rate > NRG Serum or plasma glucose measurement (mass/volume) 102 mg/dL 70-105 Serum or plasma calcium measurement (mass/volume) 8.4 mg/dL 8.5-10.1 Serum or plasma total bilirubin measurement (mass/volume) 0.6 mg/dL 0.1-1.0 Serum or plasma alkaline phosphatase measurement (enzymatic activity/volume) 27 U/L 40-136 Serum or plasma aspartate aminotransferase measurement (enzymatic activity/ volume) 14 U/L 5-34 Serum or plasma alanine aminotransferase measurement (enzymatic activity/volume ) 22 U/L 0-55 Serum or plasma protein measurement (mass/volume) 5.3 g/dL 6.4-8.2 Serum or plasma albumin measurement (mass/volume) 3.5 g/dL 3.2-4.5 Serum or plasma phosphate measurement (mass/volume) - 09/12/16 03:22 Serum or plasma phosphate measurement (mass/volume) 3.1 mg/ dL 2.3-4.7 Magnesium - 09/12/16 03:22 Magnesium 2.1 mg/dL 1.8-2.4 Automated blood complete blood count (hemogram) panel - 09/16/16 12:10 Blood leukocytes automated count (number/volume) 10.6 10*3/ uL 4.3-11.0 Blood erythrocytes automated count (number/volume) 4.40 10*6 /uL 4.35-5.85 Venous blood hemoglobin measurement (mass/volume) 14.9 g/dL 13.3-17.7 Blood hematocrit (volume fraction) 43 % 40-54 Automated erythrocyte mean corpuscular volume 98 [foz_us] 80-99 Automated erythrocyte mean corpuscular hemoglobin (mass per erythrocyte) 34 pg 25-34 Automated erythrocyte mean corpuscular hemoglobin concentration measurement ( mass/volume) 35 g/dL 32-36 Automated erythrocyte distribution width ratio 13.3 % 10.0-14.5 Automated blood platelet count (count/volume) 253 10*3/uL 130-400 Automated blood platelet mean volume measurement 9.1 [foz_us ] 7.4-10.4 Capillary blood glucose measurement by glucometer (mass/volume) - 02/09/17 18: 15 Capillary blood glucose measurement by glucometer (mass/volume) 93 mg/dL 70-110 Complete blood count (CBC) with automated white blood cell (WBC) differential - 02/09/17 18:23 Blood leukocytes automated count (number/volume) 8.2 10*3/ uL 4.3-11.0 Blood erythrocytes automated count (number/volume) 4.18 10*6 /uL 4.35-5.85 Venous blood hemoglobin measurement (mass/volume) 13.7 g/dL 13.3-17.7 Blood hematocrit (volume fraction) 39 % 40-54 Automated erythrocyte mean corpuscular volume 92 [foz_us] 80-99 Automated erythrocyte mean corpuscular hemoglobin (mass per erythrocyte) 33 pg 25-34 Automated erythrocyte mean corpuscular hemoglobin concentration measurement ( mass/volume) 36 g/dL 32-36 Automated erythrocyte distribution width ratio 13.2 % 10.0-14.5 Automated blood platelet count (count/volume) 265 10*3/uL 130-400 Automated blood platelet mean volume measurement 9.1 [foz_us ] 7.4-10.4 Automated blood neutrophils/100 leukocytes 49 % 42-75 Automated blood lymphocytes/100 leukocytes 40 % 12-44 Blood monocytes/100 leukocytes 7 % 0-12 Automated blood eosinophils/100 leukocytes 2 % 0-10 Automated blood basophils/100 leukocytes 1 % 0-10 Blood neutrophils automated count (number/volume) 4.0 10*3 1.8-7.8 Blood lymphocytes automated count (number/volume) 3.3 10*3 1.0-4.0 Blood monocytes automated count (number/volume) 0.6 10*3 0.0-1.0 Automated eosinophil count 0.2 10*3/uL 0.0-0.3 Automated blood basophil count (count/volume) 0.1 10*3/uL 0.0-0.1 PT panel in platelet poor plasma by coagulation assay - 02/09/17 18:23 Prothrombin time (PT) in platelet poor plasma by coagulation assay 12.6 s 12.2-14.7 INR in platelet poor plasma or blood by coagulation assay 1.0 0.8-1.4 Comprehensive metabolic panel - 02/09/17 18:23 Serum or plasma sodium measurement (moles/volume) 133 mmol/ L 135-145 Serum or plasma potassium measurement (moles/volume) 3.8 mmol/L 3.6-5.0 Serum or plasma chloride measurement (moles/volume) 99 mmol/ L 98-107 Carbon dioxide 24 mmol/L 21-32 Serum or plasma anion gap determination (moles/volume) 10 mmol/L 5-14 Serum or plasma urea nitrogen measurement (mass/volume) 4 mg /dL 7-18 Serum or plasma creatinine measurement (mass/volume) 0.73 mg /dL 0.60-1.30 Serum or plasma urea nitrogen/creatinine mass ratio 5 NRG Serum or plasma creatinine measurement with calculation of estimated glomerular filtration rate > NRG Serum or plasma glucose measurement (mass/volume) 88 mg/dL 70-105 Serum or plasma calcium measurement (mass/volume) 8.2 mg/dL 8.5-10.1 Serum or plasma total bilirubin measurement (mass/volume) 0.3 mg/dL 0.1-1.0 Serum or plasma alkaline phosphatase measurement (enzymatic activity/volume) 37 U/L 40-136 Serum or plasma aspartate aminotransferase measurement (enzymatic activity/ volume) 18 U/L 5-34 Serum or plasma alanine aminotransferase measurement (enzymatic activity/volume ) 15 U/L 0-55 Serum or plasma protein measurement (mass/volume) 6.1 g/dL 6.4-8.2 Serum or plasma albumin measurement (mass/volume) 4.0 g/dL 3.2-4.5 Serum or plasma troponin i.cardiac measurement (mass/volume) - 02/09/17 18:23 Serum or plasma troponin i.cardiac measurement (mass/volume) < ng/mL <0.30 Serum or plasma ethanol measurement (mass/volume) - 02/09/17 18:23 Serum or plasma ethanol measurement (mass/volume) 251 mg/dL <10 Urine drug screening test - 02/09/17 18:39 Urine phencyclidine detection by screening method NEGATIVE NEGATIVE Urine benzodiazepines detection by screening method POSITIVE NEGATIVE Urine cocaine detection NEGATIVE NEGATIVE Urine amphetamines detection by screening method NEGATIVE NEGATIVE Urine methamphetamine detection by screening method NEGATIVE NEGATIVE Urine cannabinoids detection by screening method NEGATIVE NEGATIVE Urine opiates detection by screening method NEGATIVE NEGATIVE Urine barbiturates detection NEGATIVE NEGATIVE Screening urine tricyclic antidepressants detection NEGATIVE NEGATIVE Urine methadone detection by screening method NEGATIVE NEGATIVE Urine oxycodone detection NEGATIVE NEGATIVE Urine propoxyphene detection NEGATIVE NEGATIVE Encounters ACCT No. Visit Date/Time Discharge Status Pt. Type Provider Facility Loc./Unit Complaint [id number] 02/09/2017 18:09:00 2016 19:50:00 DIS Emergency PATRICIA GUNDERSON [employer] [facility] ER FALL [id number] 09/16/2016 11:18:00 2015 13:43:00 DIS Emergency PATRICIA GUNDERSON [employer] [facility] ER FALL/LEFT RIB/NECK PAIN [id number] 09/11/2016 18:58:00 2015 11:30:00 DIS Inpatient REMA DE LA CRUZ DO [facility] ICU POLYPHORMACY OVERDOES,ALCOHOL INTOXICATION [id number] 08/06/2016 20:35:00 2015 13:40:00 DIS Inpatient ROSARIO SCHUSTER, KARELY Reyes [facility] ICU SUICIDAL,ETOH INTOXICATION [id number] 01/15/2016 17:25:00 2015 20:43:00 DIS Emergency KEERTHI BANKS DO [facility] ER POSS HERNIA R LEG [id number] 06/24/2015 17:50:00 2014 12:36:00 DIS Inpatient KARELY PONCE MD [facility] SURGICAL ETOH INTOXICATION,DEPRESSION, SUICIDALITY [id number] 02/27/2015 08:47:00 2014 11:15:00 DIS Emergency PENNY SCHUSTER, LIAM Sigala [facility] ER FALL NOSE/LEFT RIB PAIN [id number] 12/20/2014 21:36:00 2014 09:30:00 DIS Inpatient KARELY PONCE MD [facility] 4TH [id number] 12/12/2014 17:29:00 2014 18:42:00 DIS Emergency PATRICIA GUNDERSON [employer] [facility] ER [id number] 11/15/2014 13:35:00 2013 23:59:59 CLS Preadmit MARITZA COLON MD [facility] REHAB [id number] 10/07/2014 08:32:00 2013 23:59:59 CLS Outpatient KIRSTEN CHERRY MD [facility] RAD [id number] 09/05/2014 18:46:00 2013 19:35:00 DIS Emergency KIRSTEN CHERRY MD [facility] ER [id number] 06/06/2014 16:38:00 2013 18:46:00 DIS Emergency ROSA WILLINGHAM [facility] ER [id number] 03/30/2013 20:09:00 2012 22:22:00 DIS Emergency KEERTHI BANKS DO [facility] ER R ARM PAIN [id number] 06/08/2016 14:14:00 ACT Inpatient DERIC OLEA DO [facility] ICU SUICIDAL IDEATIONS,ETOH INTOXICATION [id number] 01/25/2016 14:03:00 ACT Outpatient KARELY PONCE MD [facility] RAD PAIN IN GROIN [id number] 02/27/2015 11:19:00 Document Registration [id number] 02/27/2015 11:19:00 Document Registration [id number] 02/27/2015 11:19:00 Document Registration [id number] 02/20/2013 19:14:00 Document Registration [id number] 12/21/2012 21:39:00 Document Registration [id number] 02/04/2011 05:32:00 Document Registration [id number] 02/01/2011 08:05:00 Document Registration [id number] 01/07/2011 09:08:00 Document Registration [id number] 01/30/2010 09:11:00 Document Registration
--- OUTSIDE RECORDS SUMMARY | 2017-02-25 13:43 | XMS REPORT ---
Author Author KIET JIMENEZ Organization [facility] Address [address] [place] [address] Care Team Providers Care Director Financial Services Name Role Phone KIET JIMENEZ Unavailable PROBLEMS Type Condition ICD9-CM Code [id number] Code Onset Dates Condition Status SNOMED Code Problem Depressive disorder, not elsewhere classified F32.9 Active 79355262 Problem Anxiety state, unspecified F41.1 Active 192598242 Assessment Depressive disorder, not elsewhere classified F32.9 Jul, Active 19901454 Assessment Uncomplicated alcohol dependence F10.20 Jul, Active 70124948 ALLERGIES Unknown Allergies SOCIAL HISTORY No smoking Hx information available PLAN OF CARE VITAL SIGNS MEDICATIONS Unknown Medications RESULTS No Results PROCEDURES Procedure Date Ordered Related Diagnosis Body Site Psychotherapy, patient &/family, 30 minutes, new patient Aug 09, 2016 IMMUNIZATIONS No Known Immunizations
--- OUTSIDE RECORDS SUMMARY | 2017-02-25 13:44 | XMS REPORT ---
Author Author KIET JIMENEZ [facility] Address [address] [place] [address] Care Team Providers Care Director Appointment Name Role Phone KIET JIMENEZ Unavailable PROBLEMS Type Condition ICD9-CM Code [id number] Code Onset Dates Condition Status SNOMED Code Problem Depressive disorder, not elsewhere classified F32.9 Active 32225727 Problem Anxiety state, unspecified F41.1 Active [id number] ALLERGIES Unknown Allergies SOCIAL HISTORY No smoking Hx information available PLAN OF CARE VITAL SIGNS MEDICATIONS Unknown Medications RESULTS No Results PROCEDURES No Known procedures IMMUNIZATIONS No Known Immunizations
== END 2017-02-09 19:50 | disposition home or self-care (01) ==
LOC: EDUNIT# 18:08 → ER 18:09
DX: S06.0X0A Concussion without loss of consciousness, initial encounter (principal); S02.11 Fracture of occiput; F10.229 Alcohol dependence with intoxication, unspecified; J44.9 Chronic obstructive pulmonary disease, unspecified; Y90.8 Blood alcohol level of 240 mg/100 ml or more; Z79.899 Other long term (current) drug therapy; W01.0XXA Fall on same level from slipping, tripping and stumbling without subsequent striking against object, initial encounter; Y92.009 Unspecified place in unspecified non-institutional (private) residence as the place of occurrence of the external cause; Y99.8 Other external cause status
CPT/HCPCS: 36415; 70450; 72125; 80053; 80306; 80320; 82962; 84484; 85025; 85610; 93005

== ENCOUNTER → 2017-06-03 | Outpatient (RCR) | payer BC, OTHER ==
[~2017-06-03] MED LIST changes: +AMOX500T2 PO; +DILT120C63 PO; +Hydrocodone; -NAPR500T3 PO; +NAPR500T4 PO
== END | disposition home or self-care (01) ==
PROVIDERS: ATTEND Family Medicine
DX: R26.81 Unsteadiness on feet (principal); Z87.820 Personal history of traumatic brain injury

== ENCOUNTER 2017-07-03 13:45 | Outpatient (RCR) | payer BC, OTHER ==
[~2017-07-03 13:45] MED LIST changes: -AMOX500T2 PO; -DILT120C63 PO; -Hydrocodone
== END 2017-07-03 15:44 | disposition home or self-care (01) ==
PROVIDERS: ATTEND Family Medicine
DX: R26.81 Unsteadiness on feet (principal); Z87.820 Personal history of traumatic brain injury

== ENCOUNTER 2017-07-21 18:49 | Inpatient (IN) | payer BC, OTHER ==
[~2017-07-21] VITALS: Ht 175.3 cm; Wt 55.3 kg
[~2017-07-21 18:49] MED LIST changes: +NAPR500T3 PO; -NAPR500T4 PO
--- NOTE | 2017-07-21 19:11 | ED Psychosocial ---
General Stated Complaint: SUICIAL IDEATION Source: patient (LIMITED / POOR HISTORIAN), old records Exam Limitations: intoxication History of Present Illness Time seen by provider: 18:55 Initial Comments PT ARRIVES VIA [facility] FROM HOME--PT CALLED EMS, EVEN THOUGH WAS AT HOME. DOES NOT ACCOMPANY PT TO HOSPITAL. C/O SUICIDAL IDEATIONS SINCE THIS AFTERNOON DENIES HAVING ANY SPECIFIC PLAN OR ATTEMPT PT HAS HAD "4 BEERS" TODAY--PT IS A KNOWN ALCOHOLIC, WELL HISTORY OF POLYSUBSTANCE ABUSE PT WITH MULTIPLE PSYCH ADMITS AND SUICIDE ATTEMPTS/INTENTIONAL DRUG OVERDOSES IN THE PAST. HAS BEEN HERE MULTIPLE TIMES FOR ALCOHOLISM/OVERDOSES/SUICIDAL IDEATIONS STATES HE "JUST DON'T FEEL RIGHT" AND FEELS "LIKE HE'S GOING IN THAT DIRECTION AGAIN" DENIES ANY SPECIFIC TRIGGER OR PROBLEMS. DENIES ANY PROBLEMS AT HOME. DOES STATE HE WAS "TERMINATED" FROM [employer] AFTER 17 YEARS--WAS AT THE END OF MAY--CLAIMS HE WAS "TERMINATED" "THEY DAY MY TELECOMMUNICATIONS ENGINEER DISABILITY KICKED IN" BUT DENIES BEING SIGNIFICANTLY DEPRESSED ABOUT THAT. PT STATES HE AND WENT TO [place] AT 10:00 AM, CAME HOME AROUND 1630, AND THEN "IT JUST BOTTLED UP ON ME" AND CALLED EMS. PT ADAMANTLY DENIES HAVING A GAMBLING PROBLEM PT REPORTS THAT KEEPS ALL OF HIS MEDICATIONS LOCKED UP. STATES HE HAS NOT TAKEN HIS 1:00 PM MEDICATIONS--SPECIFICALLY HIS HYDROCODONE. SOON PT ARRIVES, HE IS WANTING HIS HYDROCODONE, ALSO WANTING NICOTINE PATCH SOON HE ARRIVES, ETC. PCP: DR. PONCE PSYCH: --PT DOES NOT FOLLOW WITH ANY MENTAL HEALTH AT THIS TIME, AND DOES NOT KNOW WHO HE HAS SEEN IN THE PAST. Allergies and Home Medications Allergies Coded Allergies: No Known Drug Allergies (Unverified , 06/06/14) Home Medications Lorazepam 2 Mg Tablet, 2 MG PO TID PRN for ANXIETY, (Reported) Multivitamin 1 Each Tablet, 1 TAB PO DAILY, (Reported) Trazodone HCl 50 Mg Tablet, 50 MG PO HS PRN for SLEEP, (Reported) [Hydrocodone] , (Reported) Constitutional: no symptoms reported EENTM: no symptoms reported Respiratory: no symptoms reported, No dyspnea on exertion, No short of breath Cardiovascular: no symptoms reported, No chest pain, No palpitations, No syncope Gastrointestinal: no symptoms reported Genitourinary: no symptoms reported Musculoskeletal: no symptoms reported Skin: no symptoms reported Psychiatric/Neurological: See HPI Past Npggqxp-Uazelj-Jxctqo Hx Patient Social History Alcohol Use: Regular Use (HEAVY, REGULAR USE--PT UNABLE TO STATE HOW MUCH) Alcohol Beverage of Choice: Beer Recreational Drug Use: Yes (HISTORY OF +IV HEROIN, COCAINE USE AND "OTHERS" " IN THE PAST" , THC, RX MEDICATIONS, WITH MULTIPLE OVERDOSES) Smoking Status: Current Everyday Smoker (1 2 PPD) Type Used: Cigarettes Recent Hopitalizations: No Immunizations Up To Date Tetanus Booster (TDap): Unknown Seasonal Allergies Seasonal Allergies: No Surgeries History of Surgeries: Yes (UMBILICAL HERNIA REPAIR, CARDIAC CATH--NO INTERNVENTION) Surgeries: Abdominal Respiratory History of Respiratory Disorde: Yes Respiratory Disorders: COPD Currently Using CPAP: No Currently Using BIPAP: No Cardiovascular History of Cardiac Disorders: No (CARDIAC CATH--NO INTERNVENTION) Neurological History of Neurological Disord: Yes (SKULL FRACTURES WITH BRAIN BLEED 2015--NO SURGERY OR FOLLOW UP, PT REFUSED ADMIT AND PT SIGNED OUT AMA FROM ER. ) Neurological Disorders: Traumatic Brain Injury Reproductive System Hx Reproductive Disorders: No Sexually Transmitted Disease: No HIV/AIDS: No Genitourinary History of Genitourinary Disor: No Gastrointestinal History of Gastrointestinal Di: Yes (HEPATITIS C--NO TREATMENT; UMBILICAL HERNIA REPAIR) Gastrointestinal Disorders: Abdominal Hernia, Hepatitis Musculoskeletal History of Musculoskeletal Dis: Yes (CHRONIC BACK AND NECK PAIN ) Musculoskeletal Disorders: Chronic Back Pain Endocrine History of Endocrine Disorders: No HEENT History of HEENT Disorders: Yes (DEAF IN LEFT EAR) Hearing Impairment: Deaf (LEFT EAR) Cancer History of Cancer: No Psychosocial History of Psychiatric Problem: Yes (EXTENSIVE PSYCH ISSUES, POLYSUBSTANCE ABUSE, MULTIPLE PSYCH ADMITS. OVERDOSES, SUICIDE ATTEMPTS/IDEATIONS. ) Behavioral Health Disorders: Sleep Difficulties, Anxiety, Suicide Attempts, Depression Blood Transfusions Adverse Reaction to a Blood Tr: No Family Medical History Family Medial History: Patient reports no known family medical history. Physical Exam Vital Signs Vital Sign - Last 12Hours 07/21/17 18:50 Temp 98.8 Pulse 108 Resp 20 B/P (MAP) 108/89 Pulse Ox 97 O2 Delivery Room Air Capillary Refill : General Appearance: thin, other (REEKS OF CIGARETTES AND ALCOHOL. PT VERY TALKATIVE AND SPEECH CLEAR, BUT THOUGHT PROCESSES ARE C/W PT BEING INTOXICATED. GAIT STEADY. ) HEENT: PERRL/EOMI, other (LEFT TM SCLEROTIC. POOR DENTITION, MULTIPLE MISSING TEETH, EXTENSIVE DECAY. 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, no motor/sensory deficits, alert, normal mood/affect (ANXIOUS AT TIMES--MOSTLY ABOUT GETTING HIS REGULAR PAIN MEDICATION), oriented x 3 Appearance/Memory: disheveled, impaired insight Behavior/Eye Contact: cooperative, good eye contact Thoughts/Hallucinations: no apparent hallucination, No delusions, flight of ideas, No grandiose, No incoherent, No obsessive, No paranoid, No persecution, No phobic, No zoroastrianism Skin: normal color, warm/dry, tattoos/piercings (EXTENSIVE TATTOOS) Progress/Results/Core Measures Results/Orders Lab Results Laboratory Tests Test 07/21/17 19:05 07/22/17 01:04 Range/Units White Blood Count 9.6 4.3-11.0 10^3/uL Red Blood Count 4.18 L 4.35-5.85 10^6/uL Hemoglobin 14.0 13.3-17.7 G/DL Hematocrit 40 40-54 % Mean Corpuscular Volume 95 80-99 FL Mean Corpuscular Hemoglobin 34 25-34 PG Mean Corpuscular Hemoglobin Concent 35 32-36 G/DL Red Cell Distribution Width 14.1 10.0-14.5 % Platelet Count 284 130-400 10^3/uL Mean Platelet Volume 8.8 7.4-10.4 FL Neutrophils (%) (Auto) 56 42-75 % Lymphocytes (%) (Auto) 33 12-44 % Monocytes (%) (Auto) 9 0-12 % Eosinophils (%) (Auto) 2 0-10 % Basophils (%) (Auto) 1 0-10 % Neutrophils # (Auto) 5.3 1.8-7.8 X 10^3 Lymphocytes # (Auto) 3.2 1.0-4.0 X 10^3 Monocytes # (Auto) 0.9 0.0-1.0 X 10^3 Eosinophils # (Auto) 0.2 0.0-0.3 10^3/uL Basophils # (Auto) 0.1 0.0-0.1 10^3/uL Prothrombin Time 12.0 L 12.2-14.7 SEC INR Comment 0.9 0.8-1.4 Activated Partial Thromboplast Time 26 24-35 SEC Urine Color YELLOW Urine Clarity CLEAR Urine pH 6.5 5-9 Urine Specific [place] 1.005 L 1.016-1.022 Urine Protein NEGATIVE NEGATIVE Urine Glucose (UA) NEGATIVE NEGATIVE Urine Ketones NEGATIVE NEGATIVE Urine Nitrite NEGATIVE NEGATIVE Urine Bilirubin NEGATIVE NEGATIVE Urine Urobilinogen NORMAL NORMAL MG/DL Urine Leukocyte Esterase NEGATIVE NEGATIVE Urine RBC (Auto) NEGATIVE NEGATIVE Urine RBC NONE /HPF Urine WBC NONE /HPF Urine Squamous Epithelial Cells NONE /HPF Urine Crystals NONE /LPF Urine Bacteria NEGATIVE /HPF Urine Casts NONE /LPF Urine Mucus NEGATIVE /LPF Urine Culture Indicated NO Sodium Level 141 135-145 MMOL/L Potassium Level 3.5 L 3.6-5.0 MMOL/L Chloride Level 107 98-107 MMOL/L Carbon Dioxide Level 20 L 21-32 MMOL/L Anion Gap 14 5-14 MMOL/L Blood Urea Nitrogen 5 L 7-18 MG/DL Creatinine 0.69 0.60-1.30 MG/DL Estimat Glomerular Filtration Rate > 60 BUN/Creatinine Ratio 7 Glucose Level 86 70-105 MG/DL Calcium Level 8.9 8.5-10.1 MG/DL Magnesium Level 2.2 1.8-2.4 MG/DL Total Bilirubin 0.3 0.1-1.0 MG/DL Aspartate Amino Transf (AST/SGOT) 19 5-34 U/L Alanine Aminotransferase (ALT/SGPT) 19 0-55 U/L Alkaline Phosphatase 42 40-136 U/L Troponin I < 0.30 < 0.30 <0.30 NG/ML B-Type Natriuretic Peptide < 10.0 <100.0 PG/ML Total Protein 6.7 6.4-8.2 GM/DL Albumin 4.1 3.2-4.5 GM/DL TSH [place] Testing 1.03 0.35-4.94 UIU/ML Salicylates Level < 5.0 L 5.0-20.0 MG/DL Urine Opiates Screen NEGATIVE NEGATIVE Urine Oxycodone Screen NEGATIVE NEGATIVE Urine Methadone Screen NEGATIVE NEGATIVE Urine Propoxyphene Screen NEGATIVE NEGATIVE Acetaminophen Level < 10 L 10-30 UG/ML Urine Barbiturates Screen NEGATIVE NEGATIVE Ur Tricyclic Antidepressants Screen NEGATIVE NEGATIVE Urine Phencyclidine Screen NEGATIVE NEGATIVE Urine Amphetamines Screen NEGATIVE NEGATIVE Urine Methamphetamines Screen NEGATIVE NEGATIVE Urine Benzodiazepines Screen POSITIVE H NEGATIVE Urine Cocaine Screen NEGATIVE NEGATIVE Urine Cannabinoids Screen NEGATIVE NEGATIVE Serum Alcohol 191 H <10 MG/DL My Orders Orders - JOCELYN,KEERTHI K DO Ua Culture If Indicated (07/21/17 18:56) Thyroid Analyzer (07/21/17 18:56) Drug Screen Stat (Urine) (07/21/17 18:56) Cbc With Automated Diff (07/21/17 18:56) Comprehensive Metabolic Panel (07/21/17 18:56) Alcohol (07/21/17 18:56) Acetaminophen (07/21/17 18:56) Salicylate (07/21/17 18:56) Ekg Tracing (07/21/17 18:56) Saline Lock/Iv-Start (07/21/17 19:13) Saline Lock/Iv-Start (07/21/17 19:13) Lactated Ringers (Lr 1000 Ml Iv Solution (07/21/17 19:13) BNP (07/21/17 19:38) Magnesium (07/21/17 19:38) Protime With Inr (07/21/17 19:38) Partial Thromboplastin Time (07/21/17 19:38) Troponin I (07/21/17 19:38) Chest 1 View, Ap/Pa Only (07/21/17 19:52) Enoxaparin Injection (Lovenox Injection) (07/21/17 20:00) Sodium Chloride (Ad... W/Diltiazem Drip (07/21/17 20:30) Ekg Tracing (07/21/17 20:50) Monitor-Rhythm Ecg Trace Only (07/21/17 20:50) Ekg Tracing (07/21/17 20:50) Medications Given in ED Current Medications Medications Dose Ordered Sig/Sarah Route Start Time Stop Time Status Last Admin Dose Admin Enoxaparin Sodium 60 mg ONCE ONCE SC 07/21/17 20:00 07/21/17 20:01 DC 07/21/17 20:11 60 MG Lactated Ringer's 1,000 ml @ 0 mls/hr Q0M ONCE IV 07/21/17 19:13 07/21/17 19:15 DC 07/21/17 19:33 999 MLS/HR Vital Signs/I&O Vital Sign - Last 12Hours 07/21/17 07/21/17 07/21/17 07/21/17 18:50 20:11 20:47 21:20 Temp 98.8 98.8 98.8 98.8 Pulse 108 108 92 Resp 20 20 20 B/P (MAP) 108/89 108/89 Pulse Ox 97 97 96 O2 Delivery Room Air Room Air 07/21/17 07/21/17 07/21/17 07/21/17 21:30 21:32 21:40 22:45 Temp 97.7 Pulse 105 96 Resp 18 35 B/P (MAP) 78/57 116/81 122/85 Pulse Ox 97 97 98 O2 Delivery Room Air Room Air Room Air 07/21/17 07/22/17 07/22/17 07/22/17 23:00 00:00 00:00 00:00 Temp 98.8 Pulse 89 82 Resp 17 B/P (MAP) 109/68 92/63 Pulse Ox 97 97 94 O2 Delivery Room Air Room Air Room Air 07/22/17 07/22/17 07/22/17 01:00 01:51 02:00 Pulse 89 85 84 Resp 18 18 B/P (MAP) 105/67 107/72 Pulse Ox 94 94 O2 Delivery Room Air Room Air Progress Note : Progress Note PT GOING IN AND OUT OF AFIB WITH RVR FROM NSR RATE AROUND 100 TO AFIB RVR RATES 140-150'S. PT IS COMPLETELY ASYMPTOMATIC WITH IT. THIS OCCURS AT LEAST A DOZEN TIMES DURING ER STAY PT EVENTUALLY PLACED ON CARDIZEM DRIP, GIVEN LOVENOX. NO DETERIORATION IN PT'S CONDITION DURING ER STAY ECG Initial ECG Impression Time: 19:13 Initial ECG Rate: 153 Initial ECG Rhythm: A Fib/Flutter (WTIH RVR, ST DEPRESSION INFERIOR/LATERAL LEADS) Initial ECG Comparisson: Changed (MULTIPLE PREVIOUS EKG'S ALL NSR.) EKG : EKG Time: 19:51 Rate: 107 Rhythm: S.Tach (WITH PAC'S ) ECG Comparisson: Changed (FROM A FIB ON INITIAL EKG) Comment EKG#3--AT 2014. RATE 104, SINUS TACH, IRREGULAR RATE AND APPEARANCE OF STARTING TO GO BACK INTO AFIB THE LAST FEW BEATS. Diagnostic Imaging Comments CXR--CHRONIC INTERSTITIAL CHANGES, NO ACUTE PROCESS, PER RADIOLOGIST REPORT @ 2100 Reviewed: Reviewed by Me Departure Communication (Admissions) Progress Notes 1999--SPOKE WITH DR. BARRERA. DECLINES ADMIT AND DEFERS TO DR. BARRERA. 2002--SPOKE WITH DR. BARRERA. HE WILL NOT ADMIT PT TO HIS SERVICE, BUT STATES THAT PT SHOULD BE ADMITTED THIS IS A NEW ONSET/NEW DX. 2041--SPOKE WITH DR. BARRERA AGAIN AND INFORMED THAT PT NOW ON CARDIZEM DRIP, HE CONTINUES TO GO IN AND OUT OF ATRIAL FIB WITH RVR, AND THIS IS A NEW ONSET/DX , AND CANNOT CLEAR PT MEDICALLY FOR PSYCH EVALUATION AT THIS TIME. HE ACCEPTS PT FOR ADMIT. WILL CONSULT DR. BARRERA AND MENTAL HEALTH. Impression Impression: Primary Impression: Suicidal ideation Additional Impressions: NEW DX OF INTERMITTENT ATRIAL FIB WITH RVR Alcohol intoxication in active alcoholic History of illicit drug use HX OF HEPATITIS C --UNTREATED Disposition: 09 ADMITTED INPATIENT Condition: Improved Admissions Decision to Admit Reason: Admit from ER (General) Decision to Admit/Date: Jul 21, 2017 Time/Decision to Admit Time: 20:45 Departure-Patient Inst. Referrals: KARELY PONCE MD (PCP/Family) Primary Care Physician KEERTHI BANKS DO Jul 21, 2017 19:11
[2017-07-21] MEDS ORDERED: LACTATED RINGERS 1,000 ML IV ONE (19:13)
[2017-07-21 19:15] LABS: BASOPHILS # (AUTO) 0.1 10^3/uL (0.0-0.1); BASOPHILS % (AUTO) 1 % (0-10); BILIRUBIN,URINE NEGATIVE (NEGATIVE); EOSINOPHILS # (AUTO) 0.2 10^3/uL (0.0-0.3); EOSINOPHILS % (AUTO) 2 % (0-10); KETONES,URINE NEGATIVE (NEGATIVE); LEUKOCYTE ESTERASE ,URINE NEGATIVE (NEGATIVE); LYMPHOCYTES # (AUTO) 3.2 X 10^3 (1.0-4.0); LYMPHOCYTES % (AUTO) 33 % (12-44); MEAN CORPUSCULAR HEMOGLOBIN 34 PG (25-34); MEAN CORPUSCULAR HGB CONC 35 G/DL (32-36); MEAN CORPUSCULAR VOLUME 95 FL (80-99); MEAN PLATELET VOLUME 8.8 FL (7.4-10.4); MONOCYTES # (AUTO) 0.9 X 10^3 (0.0-1.0); MONOCYTES % (AUTO) 9 % (0-12); NEUTROPHILS # (AUTO) 5.3 X 10^3 (1.8-7.8); NEUTROPHILS % (AUTO) 56 % (42-75); NITRITE,URINE NEGATIVE (NEGATIVE); PH,URINE 6.5 (5-9); PLATELET COUNT 284 10^3/uL (130-400); PROTEIN,URINE NEGATIVE (NEGATIVE); RED BLOOD COUNT 4.18 10^6/uL (4.35-5.85); RED CELL DISTRIBUTION WIDTH 14.1 % (10.0-14.5); UROBILINOGEN,URINE NORMAL (NORMAL); WHITE BLOOD COUNT 9.6 10^3/uL (4.3-11.0)
[2017-07-21] MEDS ORDERED: Hydrocodone (19:30)
[2017-07-21 19:36] LABS: ALANINE AMINOTRANSFERASE 19 U/L (0-55); ALBUMIN 4.1 GM/DL (3.2-4.5); ALCOHOL 191 MG/DL (<10); ANION GAP 14 MMOL/L (5-14); ASPARTATE AMINO TRANSFERASE 19 U/L (5-34); BILIRUBIN,TOTAL 0.3 MG/DL (0.1-1.0); BLOOD UREA NITROGEN 5 MG/DL (7-18); BUN/CREATININE RATIO 7; CALCIUM 8.9 MG/DL (8.5-10.1); CARBON DIOXIDE 20 MMOL/L (21-32); CHLORIDE 107 MMOL/L (98-107); CREATININE SERUM 0.69 MG/DL (0.60-1.30); GFR ESTIMATED > 60; GLUCOSE 86 MG/DL (70-105); POTASSIUM 3.5 MMOL/L (3.6-5.0); SALICYLATE < 5.0 MG/DL (5.0-20.0); SODIUM 141 MMOL/L (135-145); TOTAL PROTEIN 6.7 GM/DL (6.4-8.2)
[2017-07-21 19:49] LABS: INR 0.9 (0.8-1.4)
[2017-07-21 19:54] LABS: ACETAMINOPHEN < 10 UG/ML (10-30)
[2017-07-21] MEDS ORDERED: ENOXAPARIN 60 MG/0.6 ML (LOVENOX) SYR SC ONE (20:00)
[2017-07-21 20:15] LABS: MAGNESIUM 2.2 MG/DL (1.8-2.4); TROPONIN I < 0.30 NG/ML (<0.30)
[2017-07-21] MEDS: DILTIAZEM DRIP 100 MG in SODIUM CHLORIDE (ADD-VANTAGE) 100 ML IV SCH (20:47)
--- NOTE | 2017-07-21 20:48 | Diagnostic Imaging Report ---
EXAM: Portable chest. COMPARISON to prior study from September 12, 2016. INDICATION: Atrial fibrillation. FINDINGS: Chronic interstitial changes within the lungs are not appreciably changed. There again appears to be hyperinflation with flattened diaphragms. Heart size is stable without evidence of failure. There is no focal infiltrate or effusion. There is no pneumothorax. IMPRESSION: 1. Chronic pulmonary interstitial changes without evidence of an acute superimposed cardiopulmonary process. There is no evidence to suggest superimposed edema or failure. There are no pleural effusions. Heart size is stable. Dictated by: Dictated on workstation # [id number]
[2017-07-21 21:32] VITALS: BP 78/57
[2017-07-21 21:40] VITALS: BP 116/81
[2017-07-21] MEDS ORDERED: SENNA W/DOCUSATE (SENOKOT S) TABLET PO PRN (22:15)
[2017-07-21] MEDS ORDERED: ANTACID SUSP 30 ML UDC (MYLANTA) PO PRN (22:15)
[2017-07-21] MEDS ORDERED: DILTIAZEM DRIP 100 MG/NS 100 ML IV PRN ×2 (22:15)
[2017-07-21] MEDS ORDERED: ONDANSETRON 4 MG/2 ML (SDV) Z0FRAN IV PRN (22:15)
[2017-07-21] MEDS ORDERED: LORazepam 1 MG (ATIVAN) TAB PO PRN ×3 (22:15)
[2017-07-21] MEDS ORDERED: LORazepam INJ 2 MG/ML (ATIVAN) VIAL IV PRN ×4 (22:15)
[2017-07-21 22:45] VITALS: BP 122/85
[2017-07-21] MEDS ORDERED: HYDROcodone/APAP 10 MG/325 MG (LORTAB) TAB PO ONE (22:45)
[2017-07-21 23:00] VITALS: BP 109/68
[2017-07-21] MEDS: D5 1/2 NS W/KCL 20 MEQ/L 1,000 ML IV SCH (23:00)
[2017-07-21] MEDS ORDERED: NICOTINE 21 MG (NICODERM) PATCH ONE (23:27)
[2017-07-21] MEDS: NICOTINE 21 MG (NICODERM) PATCH TD SCH (23:35)
[2017-07-22] VITALS (18 sets, daily range): BP systolic 92–143; BP diastolic 60–96
[2017-07-22] MEDS: D5 1/2 NS W/KCL 20 MEQ/L 1,000 ML IV SCH ×2 (05:56→11:35)
[2017-07-22] MEDS ORDERED: POTASSIUM CL 10MEQ/50ML IVPB 50 ML IV SCH (06:00)
[2017-07-22] MEDS ORDERED: MAGNESIUM 1 GM/100 ML IVPB 100 ML IV SCH (06:00)
[2017-07-22] MEDS ORDERED: KCL 20 MEQ TAB (K-DUR) PO SCH (06:00)
[2017-07-22 06:12] LABS: BASOPHILS # (AUTO) 0.1 10^3/uL (0.0-0.1); BASOPHILS % (AUTO) 1 % (0-10); EOSINOPHILS # (AUTO) 0.3 10^3/uL (0.0-0.3); EOSINOPHILS % (AUTO) 3 % (0-10); LYMPHOCYTES # (AUTO) 2.9 X 10^3 (1.0-4.0); LYMPHOCYTES % (AUTO) 38 % (12-44); MEAN CORPUSCULAR HEMOGLOBIN 32 PG (25-34); MEAN CORPUSCULAR HGB CONC 33 G/DL (32-36); MEAN CORPUSCULAR VOLUME 96 FL (80-99); MEAN PLATELET VOLUME 9.9 FL (7.4-10.4); MONOCYTES % (AUTO) 13 % (0-12); NEUTROPHILS # (AUTO) 3.3 X 10^3 (1.8-7.8); NEUTROPHILS % (AUTO) 44 % (42-75); PLATELET COUNT 291 10^3/uL (130-400); RED BLOOD COUNT 4.46 10^6/uL (4.35-5.85); RED CELL DISTRIBUTION WIDTH 14.6 % (10.0-14.5); WHITE BLOOD COUNT 7.6 10^3/uL (4.3-11.0)
[2017-07-22 06:31] LABS: ALANINE AMINOTRANSFERASE 17 U/L (0-55); ALBUMIN 3.5 GM/DL (3.2-4.5); ANION GAP 8 MMOL/L (5-14); ASPARTATE AMINO TRANSFERASE 15 U/L (5-34); BILIRUBIN,TOTAL 0.6 MG/DL (0.1-1.0); BLOOD UREA NITROGEN 10 MG/DL (7-18); BUN/CREATININE RATIO 14; CALCIUM 8.2 MG/DL (8.5-10.1); CARBON DIOXIDE 25 MMOL/L (21-32); CHLORIDE 110 MMOL/L (98-107); GFR ESTIMATED > 60; GLUCOSE 103 MG/DL (70-105); MAGNESIUM 1.9 MG/DL (1.8-2.4); PHOSPHORUS 3.8 MG/DL (2.3-4.7); POTASSIUM 4.2 MMOL/L (3.6-5.0); SODIUM 143 MMOL/L (135-145); TOTAL PROTEIN 5.6 GM/DL (6.4-8.2)
--- NOTE | 2017-07-22 06:44 | Pulmonary Consultation ---
History of Present Illness History of Present Illness Date of Consultation 07/22/17 06:39 Time Seen by Provider: 06:39 Date of Admission History of Present Illness 52yo with hx of of alcohol abuse, polysubstance abuse and depression with hx of suicidal attempts presented via EMS secondary to suicidal ideation per EMS. Pt had 4 beers prior to admission. Pt was admitted to ICU and is currently denies suicidal ideation. However while in ED pt developed Afib RVR and was admitted to ICU with Cardizem gtt. No hx of afib. No hx of alcohol withdrawal. I am consulted for ICU management. Allergies and Home Medications Allergies Coded Allergies: No Known Drug Allergies (Unverified , 06/06/14) Home Medications Lorazepam 2 Mg Tablet, 2 MG PO TID PRN for ANXIETY, (Reported) Multivitamin 1 Each Tablet, 1 TAB PO DAILY, (Reported) Trazodone HCl 50 Mg Tablet, 50 MG PO HS PRN for SLEEP, (Reported) [Hydrocodone] , (Reported) Past Iuwurrh-Quyrqb-Ofpdik Hx Patient Social History Alcohol Use: Regular Use Number of Drinks Today: 4 Alcohol Beverage of Choice: Beer Recreational Drug Use: Yes Drug of Choice: perscription medications only Smoking Status: Current Everyday Smoker Type Used: Cigarettes 2nd Hand Smoke Exposure: Yes Recent Foreign Travel: No Contact w/Someone Who Travel: No Recent Infectious Disease Expo: No Recent Hopitalizations: No Immunizations Up To Date Tetanus Booster (TDap): Unknown Seasonal Allergies Seasonal Allergies: No Surgeries History of Surgeries: Yes (UMBILICAL HERNIA REPAIR, CARDIAC CATH--NO INTERNVENTION) Surgeries: Abdominal Respiratory History of Respiratory Disorde: Yes Respiratory Disorders: COPD Currently Using CPAP: No Currently Using BIPAP: No Cardiovascular History of Cardiac Disorders: No (CARDIAC CATH--NO INTERNVENTION) Neurological History of Neurological Disord: Yes (SKULL FRACTURES WITH BRAIN BLEED 2015--NO SURGERY OR FOLLOW UP, PT REFUSED ADMIT AND PT SIGNED OUT AMA FROM ER. ) Neurological Disorders: Traumatic Brain Injury Reproductive System Hx Reproductive Disorders: No Sexually Transmitted Disease: No HIV/AIDS: No Genitourinary History of Genitourinary Disor: No Gastrointestinal History of Gastrointestinal Di: Yes (HEPATITIS C--NO TREATMENT; UMBILICAL HERNIA REPAIR) Gastrointestinal Disorders: Abdominal Hernia, Hepatitis Musculoskeletal History of Musculoskeletal Dis: Yes (CHRONIC BACK AND NECK PAIN ) Musculoskeletal Disorders: Chronic Back Pain Endocrine History of Endocrine Disorders: No HEENT History of HEENT Disorders: Yes (DEAF IN LEFT EAR) Loss of Vision: Left Hearing Impairment: Deaf Cancer History of Cancer: No Psychosocial History of Psychiatric Problem: Yes Behavioral Health Disorders: Sleep Difficulties, Anxiety, Suicide Attempts, Depression Integumentary History of Skin or Integumenta: No Blood Transfusions History of Blood Disorders: No Adverse Reaction to a Blood Tr: No Family Medical History Family Medial History: Patient reports no known family medical history. Review of Systems Time Seen by Provider: 06:51 Constitutional: Malaise, No: Fever, Chills, Sweats, Weakness, Other Eyes: No: Pain, Vision change, Conjunctivae inflammation, Eyelid inflammation, Other, Redness ENT: No: Ear pain, Ear discharge, Nose pain, Nose discharge, Nose congestion, Mouth pain, Mouth swelling, Throat pain, Throat swelling, Other Respiratory: Cough, Dry, Shortness of breath, SOB with excertion, No: Wheezing , Hemoptysis, Sputum Cardiovascular: No: Chest Pain, Palpitations, Orthopnea, Paroxysmal Noc. Dyspnea, Edema, Lt Headedness, Other Gastrointestinal: No: Nausea, Vomiting, Abdominal Pain, Diarrhea, Constipation , Melena, Hematochezia, Other Neurological: Weakness Exam Exam Vital Signs Date Time Temp Pulse Resp B/P (MAP) Pulse Ox O2 Delivery O2 Flow Rate FiO2 07/22/17 06:00 77 11 104/60 98 Room Air 07/22/17 05:15 70 15 112/74 94 Room Air 07/22/17 04:00 73 18 106/75 94 Room Air 07/22/17 04:00 95 Room Air 07/22/17 03:00 74 16 114/76 94 Room Air 07/22/17 02:00 84 18 107/72 94 Room Air 07/22/17 01:51 85 07/22/17 01:00 89 18 105/67 94 Room Air 07/22/17 00:00 82 17 92/63 94 Room Air 07/22/17 00:00 98.8 07/22/17 00:00 97 Room Air 07/21/17 23:00 89 109/68 97 Room Air 07/21/17 22:45 96 35 122/85 98 Room Air 07/21/17 21:40 116/81 07/21/17 21:32 97.7 105 18 78/57 97 Room Air 07/21/17 21:30 97 Room Air 07/21/17 21:20 98.8 92 20 96 Room Air 07/21/17 20:47 98.8 108 20 108/89 97 07/21/17 20:11 98.8 07/21/17 18:50 98.8 108 20 108/89 97 Room Air General Appearance: No Apparent Distress, WD/WN, Anxious Neck: Full Range of Motion, Non Tender Respiratory: No Accessory Muscle Use, No Respiratory Distress, Decreased Breath Sounds Cardiovascular: Regular Rate, Rhythm, No Edema, No Gallop, No JVD Capillary Refill: Less Than 3 Seconds Gastrointestinal: normal bowel sounds, non tender, soft, no organomegaly Neurologic/Psychiatric: Alert, Oriented x3 Skin: Normal Color, Warm/Dry Lymphatic: No Adenopathy Results Lab Laboratory Tests 07/21/17 19:05 07/22/17 05:34 Assessment/Plan Assessment/Plan -Afib RVR with rate around 140 -Currently on cardizem gtt -Cardiology consulted -hx of polysubstance abuse -Current Alcohol abuse -monitor for withdrawal -- no hx of withdrawal COPD -stable -With current tobacco use - education, nicotine use -SVNs Chronic pain -resume home meds a Suicidal ideation - pt denies 254 Clinical Quality Measures DVT/VTE Risk/Contraindication: Risk Factor Score Per Nursin RFS Level Per Nursing on Admit: 2=Moderate KATI RIOS DO Jul 22, 2017 06:44
[2017-07-22] MEDS ORDERED: RT-ALBUTEROL/IPRATROPIUM 3 ML (DUONEB) VIAL INH PRN (07:00)
[2017-07-22] MEDS: HYDROcodone/APAP 10 MG/325 MG (LORTAB) TAB PO PRN ×2 (07:45→13:48)
[2017-07-22] MEDS ORDERED: ENOXAPARIN 60 MG/0.6 ML (LOVENOX) SYR SC SCH (08:00)
--- NOTE | 2017-07-22 08:49 | Diagnostic Imaging Report ---
INDICATION: Dyspnea. Comparison made to prior examination 07/21/2017. FINDINGS: The heart size is normal. Mediastinum is unremarkable. There is no pleural effusion, pneumothorax, or pneumonia. There is air trapping compatible with COPD. IMPRESSION: No acute cardiopulmonary abnormality. COPD. Dictated by: Dictated on workstation # [id number]
[2017-07-22] MEDS ORDERED: NICOTINE PATCH REMOVAL TP SCH (08:59)
[2017-07-22] MEDS ORDERED: RT-ALBUTEROL/IPRATROPIUM 3 ML (DUONEB) VIAL INH SCH (09:00)
[2017-07-22] MEDS: DILTIAZEM DRIP 100 MG in SODIUM CHLORIDE (ADD-VANTAGE) 100 ML IV SCH (09:27)
[2017-07-22] MEDS: NICOTINE 21 MG (NICODERM) PATCH TD SCH (09:28)
[2017-07-22] MEDS: THIAMINE INJECTION 100 MG, FOLIC ACID INJECTION 1 MG, VITAMIN MULTI INJECTION 10 ML, MA... IV SCH ×10 (09:30→16:30)
[2017-07-22] MEDS ORDERED: CITA20TA12 PO (11:06)
[2017-07-22] MEDS ORDERED: HYDR-3820 PO (11:07)
--- NOTE | 2017-07-22 14:44 | Consultation-Cardiology ---
HPI-Cardiology Cardiology Consultation: Date of Consultation 07/22/17 Date of Admission Attending Physician Ward Blanca MD Admitting Physician Arnold Nixon MD Consulting Physician Leni MORRISON MD HPI: Time Seen by Provider: 13:30 Chief Complaint: Atrial fibrillation This is a 52-year-old gentleman with a psychiatric disorder on numerous psychotropic medication. In the ER he was found to have atrial fibrillation with rapid ventricular rate. The patient denies having any palpitations. He denies having any other symptoms. Review of Systems-Cardiology Review of Systems Constitutional: No As described under HPI, No no symptoms reported, No chills, No fever, No lightheadedness, No malaise, No tiredness, No weight loss, No weight gain, No other Eyes: No As described under HPI, No no symptoms reported, No blindness, No blurred vision, No contact lenses, No drainage, No decreased acuity, No foreign body sensation, No glasses, No inflammation, No pain, No photophobia, No previous injury, No shadows, No tunnel vision, No other, No vision change Ears/Nose/Throat: No As described under HPI, No no symptoms reported, No chronic hearing loss, No epistaxis, No ear discharge, No ear pain, No loose teeth, No mouth pain, No mouth swelling, No nasal drainage, No nose pain, No recent hearing loss, No throat pain, No throat swelling, No ulcerations, No other Respiratory: No no symptoms reported, No As described under HPI, No cough, No orthopnea, No shortness of breath, No SOB with excertion, No SOB at rest, No stridor, No wheezing, No other Cardiovascular: No no symptoms reported, No As described under HPI, No chest pain, No edema, No irregular heart rate, No lightheadedness, No palpitations, No syncope, No other Gastrointestinal: No no symptoms reported, No As described under HPI, No abdomen distended, No abdominal pain, No blood streaked bowels, No constipation , No diarrhea, No difficulty swallowing, No nausea, No poor appetite, No poor fluid intake, No rectal bleeding, No vomiting, No other, No nausea/vomiting/ diarrhea, No stool coloration changes Genitourinary: No no symptoms reported, No As described under HPI, No burning, No dysuria, No discharge, No frequency, No flank pain, No hematuria, No incontinence, No pain, No urgency, No other, No urine frequency changes, No urine coloration changes Musculoskeletal: No no symptoms reported, No As describe under HPI, No back pain, No gout, No joint pain, No joint swelling, No muscle pain, No muscle stiffness, No neck pain, No other Skin: No no symptoms reported, No As described under HPI, No change in color, No change in hair/nails, No dryness, No lesions, No lumps, No rash, No other, No skin related problems, No ulcerations, No rash on exposed areas, No ulcerations on exposed areas Psychiatric/Neurological: As described under HPI Hematologic: No no symptoms reported, No As described under HPI, No anemia, No blood clots, No easy bleeding, No easy bruising, No swollen glands, No other, No bleeding abnormalities NQX-Dimdst-Atsgmv Hx Patient Social History Alcohol Use: Regular Use Recreational Drug Use: Yes Drug of Choice: perscription medications only Smoking Status: Current Everyday Smoker Type Used: Cigarettes 2nd Hand Smoke Exposure: Yes Recent Foreign Travel: No Recent Infectious Disease Expo: No Hospitalization with Isolation: Denies Physical Abuse Screen: No Sexual Abuse: No Immunizations Up To Date Tetanus Booster (TDap): Unknown Past Medical History PMH As described under Assessment. Family Medical History Family History: Patient reports no known family medical history. Allergies and Home Medications Allergies Coded Allergies: No Known Drug Allergies (Unverified , 06/06/14) Home Medications Citalopram Hydrobromide 20 Mg Tablet, 20 MG PO DAILY, (Reported) Diltiazem HCl 120 Mg Cap.er.24h, 120 MG PO DAILY, #30 Prescribed by: CARLOS SAUL on 07/22/17 0776 Hydrocodone/Acetaminophen 1 Each Tablet, 1 TAB PO Q4H PRN for PAIN-MODERATE, ( Reported) Lorazepam 2 Mg Tablet, 2 MG PO TID PRN for ANXIETY, (Reported) Multivitamin 1 Each Tablet, 1 TAB PO DAILY, (Reported) Trazodone HCl 50 Mg Tablet, 50 MG PO HS PRN for SLEEP, (Reported) Physical Exam-Cardiology Physical Exam Vital Signs/I&O Vital Sign - Last 12Hours 07/22/17 07/22/17 07/22/17 07/22/17 12:00 12:00 13:00 13:00 Temp 97.8 Pulse 76 81 70 Resp 28 18 B/P (MAP) 114/88 114/78 Pulse Ox 97 96 O2 Delivery Room Air Room Air Room Air 07/22/17 07/22/17 07/22/17 07/22/17 14:00 15:00 16:00 16:00 Temp 98.4 Pulse 75 69 79 Resp 10 12 11 B/P (MAP) 128/94 143/86 135/91 Pulse Ox 97 96 98 O2 Delivery Room Air Room Air Room Air Room Air 07/22/17 07/22/17 17:00 17:35 Pulse 66 Resp 16 B/P (MAP) 134/96 Pulse Ox 97 O2 Delivery Room Air Intake and Output 07/23/17 00:00 Intake Total 1015.2 ml Output Total 1000 ml Balance 15.2 ml Capillary Refill : Less Than 3 Seconds Constitutional: No appears stated age, No AAO x 3, No apparent distress, No PERRL, No well-developed, No well-nourished, No other HEENT: No PERRL, No normal ENT inspection, No TMs normal, No pharynx normal, No scleral icterus (R), No scleral icterus (L), No pale conjunctivae (R), No pale conjunctivae (L), No photophobia, No TM abnormal (R), No TM abnormal (L), No pharyngeal erythema, No tonsillar exudate, No other, No discharge, No EOMI, No hearing is well preserved, No hard of hearing, No oral hygience is good, No ulceration, No xanthelasmas are seen Neck: No non-tender, No full range of motion, No supple, No normal inspection, No carotid bruit, No limited range of motion, No lymphadenopathy (R), No lymphadenopathy (L), No tender lateral, No tender midline, No thyromegaly, No other, No carotid pulses are 2 + bilaterally, No with good upstrokes Respiratory: No accessory muscle use, No respiratory distress, No chest tender , No chest expansion is symmetric, No chest is bilaterally symmetric, No lungs clear to percussion, No lungs clear to auscultation, No crackles, No rhonchi, No rales, No stridor, No wheezing, No pleural rub, No other Cardiovascular: No regular rate-rhythm, No irregularly irregular, No extra beats, No parasternal heave is noted, No JVD, No edema, No bradycardia, No tachycardia, No point of maximal impulse, No cardiac thrills are palpable, No S1 and S2, No gallop/S3, No gallop/S4, No diastolic murmur, No systolic murmur, No friction rub, No click, No other Gastrointestinal: No tender, No soft, No round, No distended, No pulsatile mass , No organomegaly, No guarding, No rebound, No tenderness, No hernia, No mass, No audible bowel sounds, No abnormal bowel sounds, No abdominal bruits, No spleenomegaly, No other Rectal: deferred Extremities: No normal range of motion, No non-tender, No normal inspection, No pedal edema, No calf tenderness, No normal capillary refill, No pelvis stable , No calf tenderness, No inflammation, No pedal edema, No slow capillary refill , No swelling, No other, No abrasion, No clubbing, No cyanosis, No ecchymosis, No laceration, No no lower extremity edema bilateral, No significant edema, No tenderness, No wound Neurologic/Psychiatric: No southeast regional sales manager II-XII nml as tested, No no motor/sensory deficits, No alert, No normal mood/affect, No oriented x 3, No abnormal cerebellar tests, No abnormal southeast regional sales manager II-XII, No abnormal gait, No aphasia, No EOM palsy, No facial droop, No motor weakness, No sensory deficit, No depressed affect, No disoriented x 3, No other, No grossly intact, No power is 5/5 both on sides Skin: No normal color, No warm/dry, No cyanosis, No cool, No diaphoresis, No damp, No ecchymosis, No jaundice, No mottled, No pallor, No rash, No tattoos/ piercings, No ulcerations, No rash on exposed areas, No ulcerations on exposed areas, No other Data Review Labs Laboratory Tests 07/22/17 01:04: Troponin I < 0.30 07/22/17 05:34: White Blood Count 7.6, Red Blood Count 4.46, Hemoglobin 14.3, Hematocrit 43, Mean Corpuscular Volume 96, Mean Corpuscular Hemoglobin 32, Mean Corpuscular Hemoglobin Concent 33, Red Cell Distribution Width 14.6H, Platelet Count 291, Mean Platelet Volume 9.9, Neutrophils (%) (Auto) 44, Lymphocytes (%) (Auto) 38, Monocytes (%) (Auto) 13H, Eosinophils (%) (Auto) 3, Basophils (%) (Auto) 1, Neutrophils # (Auto) 3.3, Lymphocytes # (Auto) 2.9, Monocytes # (Auto) 1.0, Eosinophils # (Auto) 0.3, Basophils # (Auto) 0.1, Sodium Level 143, Potassium Level 4.2, Chloride Level 110H, Carbon Dioxide Level 25, Anion Gap 8, Blood Urea Nitrogen 10, Creatinine 0.70, Estimat Glomerular Filtration Rate > 60, BUN/ Creatinine Ratio 14, Glucose Level 103, Calcium Level 8.2L, Phosphorus Level 3.8 , Magnesium Level 1.9, Total Bilirubin 0.6, Aspartate Amino Transf (AST/SGOT) 15 , Alanine Aminotransferase (ALT/SGPT) 17, Alkaline Phosphatase 35L, Total Protein 5.6L, Albumin 3.5 ECG Impression ECG Initial ECG Rhythm: Normal Sinus Comment Telemetry showed paroxysmal atrial fibrillation. Currently in sinus rhythm. A/P-Cardiology Assessment/Admission Diagnosis Paroxysmal atrial fibrillation, Psychiatry disorder Plan PAF: DC cardizem drip, start PO cardizem 120mg daily. CHADSVASC score zero, therefore full aspirin only. Echo: within normal limits can dc today with follow up in office in two to three weeks. Thank you for your consultation. Please call me if you have any questions. Ladarius Morrison MD, FACP, FACC, FSCAI, FHRS, CCDS Interventional Cardiology Cardiac Electrophysiology Vascular Medicine and Endovascular Interventions Clinical Quality Measures DVT/VTE Risk/Contraindication: Risk Factor Score Per Nursin RFS Level Per Nursing on Admit: 2=Moderate Leni MORRISON MD Jul 22, 2017 14:44
[2017-07-22] MEDS ORDERED: DILTIAZEM 120 MG (CARDIZEM CD) CAP PO SCH (14:45)
[2017-07-22] MEDS ORDERED: DILT120C63 PO (14:49)
--- NOTE | 2017-07-22 14:59 | Short Stay Summary-Hospitalist ---
HPI History of Present Illness: HPI/Chief Complaint CC: "Bad Thoughts" HPI: Pt reports he has a long history of psychiatric problems including 4 hospital stays. [place] 4 [place] and then began to have "bad thoughts" He describes them as "not wanting to be here anymore." When specifically asked if he was thinking of killhimself he said no. He also denied any plan for SI. He has never attempted suicide in the past. He follows with a psychiatrist (Dr. Bear) and saw him last two month so. He is on Celexa as an antidepressant person his PCP Dr. Nixon. He states he called EMS because he was told if he ever has those thoughts he should call 911 immediately. He adamantly denies any SI today. While in the ER he was found to be in a-fib with RVR with a rate up to 140. He was placed on a cardizem gtt. He denies any history of a -fib or any even any symptoms while in a-fib. He denies any personal or family history of cardiac disease. He denied any SOA. Source: patient, RN/MD Exam Limitations: no limitations Date Seen 07/22/17 Time Seen by Provider: 07:30 Attending Physician Ward Blanca MD PCP Arnold Nixon MD Referring Physician Date of Admission Jul 21, 2017 at 20:45 Home Medications & Allergies Home Medications Reviewed patient Home Medication Reconciliation Form Allergies Allergies Coded Allergies No Known Drug Allergies (Unverified06/06/14) Past Myaiijd-Csaxhr-Okfxpz Hx Patient Social History Alcohol Use: Regular Use Number of Drinks Today: 4 Alcohol Beverage of Choice: Beer Recreational Drug Use: Yes Drug of Choice: perscription medications only Smoking Status: Current Everyday Smoker Type Used: Cigarettes 2nd Hand Smoke Exposure: Yes Physical Abuse Screen: No Sexual Abuse: No Recent Foreign Travel: No Contact w/other who traveled: No Recent Hopitalizations: No Recent Infectious Disease Expo: No Immunizations Up To Date Tetanus Booster (TDap): Unknown Seasonal Allergies Seasonal Allergies: No Surgeries Yes (UMBILICAL HERNIA REPAIR, CARDIAC CATH--NO INTERNVENTION) Abdominal Respiratory Yes Currently Using CPAP: No Currently Using BIPAP: No Cardiovascular No (CARDIAC CATH--NO INTERNVENTION) Neurological Yes (SKULL FRACTURES WITH BRAIN BLEED 09/16/2016--NO SURGERY OR FOLLOW UP, PT REFUSED ADMIT AND PT SIGNED OUT AMA FROM ER. ) Traumatic Brain Injury Reproductive System Hx Reproductive Disorders: No Sexually Transmitted Disease: No HIV/AIDS: No Genitourinary No Gastrointestinal Yes (HEPATITIS C--NO TREATMENT; UMBILICAL HERNIA REPAIR) Abdominal Hernia, Hepatitis Musculoskeletal Yes (CHRONIC BACK AND NECK PAIN ) Chronic Back Pain Endocrine History of Endocrine Disorders: No HEENT History of HEENT Disorders: Yes (DEAF IN LEFT EAR) Loss of Vision: Left Hearing Impairment: Deaf Cancer No Psychosocial History of Psychiatric Problem: Yes Behavioral Health Disorders: Sleep Difficulties, Anxiety, Depression Integumentary History of Skin or Integumenta: No Blood Transfusions History of Blood Disorders: No Adverse Reaction to a Blood Tr: No Family Medical History Significant Family History: No Pertinent Family Hx Family Hx: Patient reports no known family medical history. Review of Systems Constitutional: No chills, No fever, No weakness EENTM: No blurred vision, No double vision Respiratory: No cough, No dyspnea on exertion, No short of breath Cardiovascular: No chest pain, No edema, No palpitations Gastrointestinal: No abdominal pain, No constipation, No diarrhea, No nausea Genitourinary: No dysuria, No frequency Musculoskeletal: back pain, neck pain Psychiatric/Neurological: Depressed Physical Exam Physical Exam Vital Signs Vital Sign - Last 12Hours 07/21/17 18:50 Temp 98.8 Pulse 108 Resp 20 B/P (MAP) 108/89 Pulse Ox 97 O2 Delivery Room Air Capillary Refill : Less Than 3 Seconds General Appearance: No Apparent Distress, WD/WN HEENT: PERRL/EOMI Neck: Non Tender, Supple Cardiovascular: Regular Rate, Rhythm, No Edema, No JVD, No Murmur Gastrointestinal: Normal Bowel Sounds, Non Tender, Soft Extremity: Normal Capillary Refill, Non Tender, No Calf Tenderness, No Pedal Edema Neurologic/Psychiatric: Alert, Oriented x3, Normal Mood/Affect Skin: Normal Color, Warm/Dry, Tattoos/Piercings Results Results/Procedures Lab Laboratory Tests 07/21/17 19:05 07/22/17 05:34 Short Stay Diagnosis Discharge Diagnosis-Short Stay Admission Diagnosis A-fib with RVR Final Discharge Diagnosis A-fib with RVR Conclusion Plan Pt initially presented for SI but upon my exam absolutely denied any current SI. he follows with a psychiatrist and has already scheduled a follow up with them. He has no plan and no SI currently. Discussed plan if suicidal thoughts return and he has support system and plan to call in place. He was incidentally found to be in a-fib with RVR and started on a cardizem gtt. This is new onset. He was evaluated by cardiology and transitioned off gtt to oral cardizem. He was asymptomatic though out this. He will follow up his PCP and set up follow up with cardiology at discharge. He was discharged home in stable condition. Total time spent >30m in discharge planning. Clinical Quality Measures DVT/VTE Risk/Contraindication: Risk Factor Score Per Nursin RFS Level Per Nursing on Admit: 2=Moderate CARLOS SAUL MD Jul 22, 2017 14:59
[2017-07-23] MEDS ORDERED: DILTIAZEM 120 MG (CARDIZEM CD) CAP PO SCH (09:00)
== END 2017-07-22 17:35 | disposition home or self-care (01) | DRG 309 ==
LOC: EDUNIT# 18:49 → ER 18:50 → ICU 20:45
PROVIDERS: ADMIT Internal Medicine; ATTEND Internal Medicine
DX: I48.0 Paroxysmal atrial fibrillation (principal); R45.851 Suicidal ideations; F10.220 Alcohol dependence with intoxication, uncomplicated; F17.210 Nicotine dependence, cigarettes, uncomplicated; J44.9 Chronic obstructive pulmonary disease, unspecified; B19.20 Unspecified viral hepatitis C without hepatic coma; F41.9 Anxiety disorder, unspecified; F32.9 Major depressive disorder, single episode, unspecified; G89.29 Other chronic pain; M54.2 Cervicalgia; Z87.820 Personal history of traumatic brain injury
CPT/HCPCS: 36415; 71010; 80053; 80306; 80320; 80329; 81000; 83735; 83880; 84100; 84443; 84484; 85025; 85610; 85730; 86703; 93005; 93041; 93306; 96361; 96372; 96374

== ENCOUNTER 2017-10-14 13:45 | Emergency (ER) | payer SELFPAY ==
[~2017-10-14] VITALS: Ht 175.3 cm; Wt 56.7 kg
[~2017-10-14 13:45] MED LIST changes: +DILT120C63 PO; +Hydrocodone; -NAPR500T3 PO; +NAPR500T4 PO
[2017-10-14] MEDS ORDERED: AMOX500T2 PO (14:42)
--- NOTE | 2017-10-14 14:42 | ED General ---
General Chief Complaint: Ear Problems Stated Complaint: LEFT EAR PAIN Nursing Triage Note: PATIENT STATES THAT HE IS HAVING EAR PAIN THAT IS NEW. HE HAS TINNITUS BUT PAIN IS NEW. HE ALSO HAS A HEADACHE. HE STATES "MY EQUILIBRIUM IS OFF" AND NEEDED GUIDANCE TO GET TO EXAM ROOM. Nursing Sepsis Screen: No Definite Risk Source of Information: Patient Exam Limitations: No Limitations History of Present Illness Time Seen by Provider: 14:28 Initial Comments This 52-year-old gentleman presents to the emergency room with complaints of pain in the left ear described as a throbbing and associated with tinnitus. Symptoms just started today. 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 However, the pain and tinnitus are new. Patient has chronic disequilibrium secondary to the head injury which is maybe a little worse today. He does admit to drinking 4 beers earlier today. He drinks about 3 days per week. He does not appear intoxicated at this time. Allergies and Home Medications Allergies Coded Allergies: No Known Drug Allergies (Unverified , 06/06/14) Home Medications Amoxicillin 500 Mg Tablet, 1,000 MG PO BID, #40 Prescribed by: LIAM MEJIAS on 10/14/17 1442 Citalopram Hydrobromide 20 Mg Tablet, 20 MG PO DAILY, (Reported) Diltiazem HCl 120 Mg Cap.er.24h, 120 MG PO DAILY, #30 Prescribed by: CARLOS SAUL on 07/22/17 1449 Hydrocodone/Acetaminophen 1 Each Tablet, 1 TAB PO Q4H PRN for PAIN-MODERATE, ( Reported) Lorazepam 2 Mg Tablet, 2 MG PO TID PRN for ANXIETY, (Reported) Multivitamin 1 Each Tablet, 1 TAB PO DAILY, (Reported) Trazodone HCl 50 Mg Tablet, 50 MG PO HS PRN for SLEEP, (Reported) Constitutional: no symptoms reported EENTM: see HPI Respiratory: no symptoms reported Cardiovascular: no symptoms reported Gastrointestinal: no symptoms reported Genitourinary: no symptoms reported Musculoskeletal: no symptoms reported Skin: no symptoms reported Psychiatric/Neurological: See HPI Past Mekbmab-Tlwccw-Gaebce Hx Patient Social History Alcohol Beverage of Choice: Beer Drug of Choice: perscription medications only Type Used: Cigarettes 2nd Hand Smoke Exposure: Yes Recent Foreign Travel: No Contact w/Someone Who Travel: No Recent Infectious Disease Expo: No Recent Hopitalizations: No Immunizations Up To Date Tetanus Booster (TDap): Unknown Seasonal Allergies Seasonal Allergies: No Surgeries History of Surgeries: Yes (UMBILICAL HERNIA REPAIR, CARDIAC CATH--NO INTERNVENTION) Surgeries: Abdominal Respiratory History of Respiratory Disorde: Yes Respiratory Disorders: COPD Currently Using CPAP: No Currently Using BIPAP: No Cardiovascular History of Cardiac Disorders: Yes (CARDIAC CATH--NO INTERNVENTION) Cardiac Disorders: Atrial Fibrillation Neurological History of Neurological Disord: Yes Neurological Disorders: Traumatic Brain Injury Reproductive System Hx Reproductive Disorders: No Sexually Transmitted Disease: No HIV/AIDS: No Genitourinary History of Genitourinary Disor: No Gastrointestinal History of Gastrointestinal Di: Yes (HEPATITIS C--NO TREATMENT; UMBILICAL HERNIA REPAIR) Gastrointestinal Disorders: Abdominal Hernia, Hepatitis Musculoskeletal History of Musculoskeletal Dis: Yes (CHRONIC BACK AND NECK PAIN ) Musculoskeletal Disorders: Chronic Back Pain Endocrine History of Endocrine Disorders: No HEENT History of HEENT Disorders: Yes (DEAF IN LEFT EAR) Loss of Vision: Left Hearing Impairment: Deaf Cancer History of Cancer: No Psychosocial History of Psychiatric Problem: Yes Behavioral Health Disorders: Sleep Difficulties, Anxiety, Depression Integumentary History of Skin or Integumenta: No Blood Transfusions History of Blood Disorders: No Adverse Reaction to a Blood Tr: No Family Medical History Significant Family History: No Pertinent Family Hx Family Medial History: Patient reports no known family medical history. Physical Exam Vital Signs Vital Sign - Last 12Hours 10/14/17 10/14/17 13:51 14:52 Temp 98.9 Pulse 79 Resp 20 B/P (MAP) 111/78 Pulse Ox 98 Capillary Refill : Less Than 3 Seconds General Appearance: No Apparent Distress, WD/WN HEENT: PERRL/EOMI, Normal ENT Inspection, Pharynx Normal, TM Abnormal (L) ( Erythematous) Neck: Normal Inspection, Supple Respiratory: Lungs Clear, Normal Breath Sounds, No Accessory Muscle Use, No Respiratory Distress Cardiovascular: Regular Rate, Rhythm, No Edema, No Murmur Extremity: Normal Inspection Neurologic/Psychiatric: Alert, Oriented x3, No Motor/Sensory Deficits, Normal Mood/Affect, punch press operator II-XII Norm as Tested (Except for deafness in the left ear) Progress/Results/Core Measures Suspected Sepsis Recent Fever Within 48 Hours: No Infection Criteria Present: None New/Unexplained Altered Menta: No Sepsis Screen: No Definite Risk Sepsis Diagnosis: SIRS Temperature:98.9 Pulse: 79 Respiratory Rate: 20 Blood Pressure 111 /78 Mean: 89 Results/Orders Vital Signs/I&O Capillary Refill : Less Than 3 Seconds Blood Pressure Mean: 89 Progress Note : Progress Note Patient was found to have a left otitis media and was prescribed antibiotics. He was able to ambulate safely and independently from the ER. Departure Impression Impression: Primary Impression: Left otitis media Qualified Codes: H65.02 - Acute serous otitis media, left ear Disposition: HOME, SELF-CARE Condition: Stable Departure-Patient Inst. Decision time for Depature: 14:40 Referrals: KARELY PONCE MD (PCP/Family) Primary Care Physician Patient Instructions: Ear Infections (Otitis Media) (DC) Add. Discharge Instructions: Complete your antibiotics as prescribed. You may take Ibuprofen up to 600 mg every 6 hours as needed for pain. Add Tylenol (acetaminophen) up to 650 mg every 6 hours as needed for additional pain relief. Follow-up with your primary care provider next week if not improving as expected. Return to the ER if symptoms worsen. All discharge instructions reviewed with patient and/or family. Voiced understanding. Scripts Amoxicillin (Amoxicillin) 500 Mg Tablet 1000 MG PO BID, #40 TAB Prov: LIAM FRANCIS MD 10/14/17 LIAM FRANCIS MD Oct 14, 2017 14:42
[2017-10-14 14:52] VITALS: BP 111/78
== END 2017-10-14 14:51 | disposition home or self-care (01) ==
LOC: EDUNIT# 13:45 → ER 13:47
DX: H66.92 Otitis media, unspecified, left ear (principal); J44.9 Chronic obstructive pulmonary disease, unspecified; I48.91 Unspecified atrial fibrillation; B19.20 Unspecified viral hepatitis C without hepatic coma; F41.9 Anxiety disorder, unspecified; F32.9 Major depressive disorder, single episode, unspecified; Z87.820 Personal history of traumatic brain injury; Z77.22 Contact with and (suspected) exposure to environmental tobacco smoke (acute) (chronic); Z87.19 Personal history of other diseases of the digestive system
CPT/HCPCS: 99282

== ENCOUNTER → 2017-10-27 | Outpatient (CLI) | payer OTHER ==
[~2017-10-27] MED LIST changes: +AMOX500T2 PO; +RT-ALBUTEROL SULF 2.5 MG/3 ML PRE-MIX VIAL IH ONE
--- NOTE | 2017-10-27 14:39 | Diagnostic Imaging Report ---
INDICATION: Back pain. COMPARISON: None FINDINGS: Frontal and lateral views of the lumbar spine were obtained. Alignment and vertebral heights are maintained. There is no fracture or destructive process. Mild multilevel degenerative disease is noted in the lumbar spine. Limited views of the abdomen demonstrate nonobstructive bowel gas pattern. IMPRESSION: 1. No acute fracture or dislocation of the lumbar spine. 2. Mild multilevel degenerative changes. Dictated by: Dictated on workstation # [id number]
== END ==
LOC: RT 13:19
PROVIDERS: ATTEND Otolaryngology
DX: Z02.71 Encounter for disability determination (principal)
CPT/HCPCS: 72100; 94060

== ENCOUNTER 2019-01-02 16:00 | Emergency (ER) | payer SELFPAY ==
[~2019-01-02 16:00] MED LIST changes: -DILT120C63 PO; +DILT120C94 PO; +HYDR-4226 PO; -HYDR-757 PO; +NAPR-915 PO; -NAPR500T4 PO; -RT-ALBUTEROL SULF 2.5 MG/3 ML PRE-MIX VIAL IH ONE; +TRAZ-189 PO; -TRAZ-28 PO
[2019-01-02 17:05] LABS: BASOPHILS # (AUTO) 0.1 10^3/uL (0.0-0.1); BASOPHILS % (AUTO) 1 % (0-10); EOSINOPHILS # (AUTO) 0.1 10^3/uL (0.0-0.3); EOSINOPHILS % (AUTO) 1 % (0-10); HEMATOCRIT 42 % (40-54); HEMOGLOBIN 14.9 G/DL (13.3-17.7); LYMPHOCYTES # (AUTO) 3.4 X 10^3 (1.0-4.0); LYMPHOCYTES % (AUTO) 33 % (12-44); MEAN CORPUSCULAR HEMOGLOBIN 34 PG (25-34); MEAN CORPUSCULAR HGB CONC 36 G/DL (32-36); MEAN CORPUSCULAR VOLUME 94 FL (80-99); MEAN PLATELET VOLUME 9.1 FL (7.4-10.4); MONOCYTES # (AUTO) 0.8 X 10^3 (0.0-1.0); MONOCYTES % (AUTO) 8 % (0-12); NEUTROPHILS # (AUTO) 5.9 X 10^3 (1.8-7.8); NEUTROPHILS % (AUTO) 57 % (42-75); PLATELET COUNT 253 10^3/uL (130-400); RED CELL DISTRIBUTION WIDTH 14.5 % (10.0-14.5); WHITE BLOOD COUNT 10.3 10^3/uL (4.3-11.0)
[2019-01-02 17:11] LABS: AMPHETAMINE SCREEN, URINE NEGATIVE (NEGATIVE); BARBITURATE SCREEN URINE NEGATIVE (NEGATIVE); BENZODIAZEPINES SCREEN URINE POSITIVE (NEGATIVE); CANNABINOID SCREEN, URINE NEGATIVE (NEGATIVE); COCAINE SCREEN URINE NEGATIVE (NEGATIVE); METHADONE STAT NEGATIVE (NEGATIVE); METHAMPHETAMINE SCREEN URINE S NEGATIVE (NEGATIVE); OPIATE SCREEN URINE NEGATIVE (NEGATIVE); OXYCODONE STAT NEGATIVE (NEGATIVE); PROPOXYPHENE STAT NEGATIVE (NEGATIVE); TRICYCLIC ANTIDEPRESSANTS SCRE NEGATIVE (NEGATIVE)
[2019-01-02 17:26] LABS: ALANINE AMINOTRANSFERASE 20 U/L (0-55); ALBUMIN 4.5 GM/DL (3.2-4.5); ALKALINE PHOSPHATASE 35 U/L (40-136); BILIRUBIN,TOTAL 0.7 MG/DL (0.1-1.0); BUN/CREATININE RATIO 6; CALCIUM 9.1 MG/DL (8.5-10.1); CARBON DIOXIDE 24 MMOL/L (21-32); CHLORIDE 101 MMOL/L (98-107); CREATININE SERUM 0.66 MG/DL (0.60-1.30); GFR ESTIMATED > 60; GLUCOSE 83 MG/DL (70-105); MAGNESIUM 2.4 MG/DL (1.8-2.4); POTASSIUM 3.8 MMOL/L (3.6-5.0); SALICYLATE < 5.0 MG/DL (5.0-20.0); SODIUM 136 MMOL/L (135-145); TOTAL PROTEIN 7.1 GM/DL (6.4-8.2)
[2019-01-02 17:33] LABS: CLARITY,URINE CLEAR; COLOR,URINE YELLOW; PH,URINE 6.5 (5-9)
--- NOTE | 2019-01-02 17:33 | Diagnostic Imaging Report ---
INDICATION: Hypothermia. COMPARISON: 07/22/2017. FINDINGS: The lungs are clear. Ill-defined nodular opacity over the right lung base is likely due to summation shadow of the ribs and nipple as there is no corresponding abnormality on the lateral view. No pleural effusion or pneumothorax. Hyperaerated lung volume could be physiologic. Normal heart size and pulmonary vasculature. IMPRESSION: No acute process by radiography. Dictated by: Dictated on workstation # [id number]
[2019-01-02 17:34] LABS: BACTERIA,URINE NEGATIVE /HPF; BILIRUBIN,URINE NEGATIVE (NEGATIVE); GLUCOSE, URINE (UA) NEGATIVE (NEGATIVE); KETONES,URINE NEGATIVE (NEGATIVE); LEUKOCYTE ESTERASE ,URINE NEGATIVE (NEGATIVE); NITRITE,URINE NEGATIVE (NEGATIVE); PROTEIN,URINE NEGATIVE (NEGATIVE); UROBILINOGEN,URINE NORMAL (NORMAL)
[2019-01-02 17:43] LABS: ACETAMINOPHEN < 10 UG/ML (10-30)
[2019-01-02 17:45] LABS: TSH (THYROID ANALYZER) 0.89 UIU/ML (0.35-4.94)
--- NOTE | 2019-01-02 18:26 | ED General ---
General Chief Complaint: Psych/Social Disorder Stated Complaint: WOKE UP COLD Source of Information: Patient Exam Limitations: No Limitations Allergies and Home Medications Allergies Coded Allergies: No Known Drug Allergies (Unverified , 06/06/14) Home Medications Amoxicillin 500 Mg Tablet, 1,000 MG PO BID Prescribed by: LIAM MEJIAS on 10/14/17 1442 Citalopram Hydrobromide 20 Mg Tablet, 20 MG PO DAILY, (Reported) Diltiazem HCl 120 Mg Cap.er.24h, 120 MG PO DAILY Prescribed by: CARLOS SAUL on 07/22/17 1449 Hydrocodone/Acetaminophen 1 Each Tablet, 1 TAB PO Q4H PRN for PAIN-MODERATE, ( Reported) Lorazepam 2 Mg Tablet, 2 MG PO TID PRN for ANXIETY, (Reported) Multivitamin 1 Each Tablet, 1 TAB PO DAILY, (Reported) Trazodone HCl 50 Mg Tablet, 50 MG PO HS PRN for SLEEP, (Reported) Past Jbuhrat-Lslpgr-Fhamlu Hx Patient Social History Alcohol Beverage of Choice: Beer Drug of Choice: perscription medications only Type Used: Cigarettes 2nd Hand Smoke Exposure: Yes Recent Hopitalizations: No Immunizations Up To Date Tetanus Booster (TDap): Unknown Seasonal Allergies Seasonal Allergies: No Past Medical History Surgeries: Yes (UMBILICAL HERNIA REPAIR, CARDIAC CATH--NO INTERNVENTION) Abdominal Respiratory: Yes COPD Currently Using CPAP: No Currently Using BIPAP: No Cardiac: Yes (CARDIAC CATH--NO INTERNVENTION) Atrial Fibrillation Neurological: Yes Traumatic Brain Injury Reproductive Disorders: No Sexually Transmitted Disease: No HIV/AIDS: No Genitourinary: No Gastrointestinal: Yes (HEPATITIS C--NO TREATMENT; UMBILICAL HERNIA REPAIR) Abdominal Hernia, Hepatitis Musculoskeletal: Yes (CHRONIC BACK AND NECK PAIN ) Chronic Back Pain Endocrine: No HEENT: Yes (DEAF IN LEFT EAR) Loss of Vision: Left Hearing Impairment: Deaf Cancer: No Psychosocial: Yes Sleep Difficulties, Anxiety, Depression Integumentary: No Blood Disorders: No Adverse Reaction/Blood Tranf: No Family Medical History Patient reports no known family medical history. No Pertinent Family Hx Physical Exam Vital Signs Capillary Refill : Height, Weight, BMI Height: 5'9.00" Weight: 125lbs. 0oz. [id number]; 18.0 BMI Method:Stated Progress/Results/Core Measures Suspected Sepsis SIRS Temperature: Pulse: Respiratory Rate: Laboratory Tests 2/16/19 16:56: White Blood Count 10.3 Blood Pressure / Mean: Laboratory Tests 01/02/19 16:56: Creatinine 0.66, Platelet Count 253, Total Bilirubin 0.7 Results/Orders Lab Results Laboratory Tests Test 01/02/19 16:20 01/02/19 16:56 Range/Units Urine Color YELLOW Urine Clarity CLEAR Urine pH 6.5 5-9 Urine Specific [place] 1.010 L 1.016-1.022 Urine Protein NEGATIVE NEGATIVE Urine Glucose (UA) NEGATIVE NEGATIVE Urine Ketones NEGATIVE NEGATIVE Urine Nitrite NEGATIVE NEGATIVE Urine Bilirubin NEGATIVE NEGATIVE Urine Urobilinogen NORMAL NORMAL MG/DL Urine Leukocyte Esterase NEGATIVE NEGATIVE Urine RBC (Auto) NEGATIVE NEGATIVE Urine RBC NONE /HPF Urine WBC NONE /HPF Urine Squamous Epithelial Cells NONE /HPF Urine Renal Epithelial Cells NONE /HPF Urine Crystals NONE /LPF Urine Bacteria NEGATIVE /HPF Urine Casts NONE /LPF Urine Mucus NEGATIVE /LPF Urine Culture Indicated NO Urine Opiates Screen NEGATIVE NEGATIVE Urine Oxycodone Screen NEGATIVE NEGATIVE Urine Methadone Screen NEGATIVE NEGATIVE Urine Propoxyphene Screen NEGATIVE NEGATIVE Urine Barbiturates Screen NEGATIVE NEGATIVE Ur Tricyclic Antidepressants Screen NEGATIVE NEGATIVE Urine Phencyclidine Screen NEGATIVE NEGATIVE Urine Amphetamines Screen NEGATIVE NEGATIVE Urine Methamphetamines Screen NEGATIVE NEGATIVE Urine Benzodiazepines Screen POSITIVE H NEGATIVE Urine Cocaine Screen NEGATIVE NEGATIVE Urine Cannabinoids Screen NEGATIVE NEGATIVE White Blood Count 10.3 4.3-11.0 10^3/uL Red Blood Count 4.43 4.35-5.85 10^6/uL Hemoglobin 14.9 13.3-17.7 G/DL Hematocrit 42 40-54 % Mean Corpuscular Volume 94 80-99 FL Mean Corpuscular Hemoglobin 34 25-34 PG Mean Corpuscular Hemoglobin Concent 36 32-36 G/DL Red Cell Distribution Width 14.5 10.0-14.5 % Platelet Count 253 130-400 10^3/uL Mean Platelet Volume 9.1 7.4-10.4 FL Neutrophils (%) (Auto) 57 42-75 % Lymphocytes (%) (Auto) 33 12-44 % Monocytes (%) (Auto) 8 0-12 % Eosinophils (%) (Auto) 1 0-10 % Basophils (%) (Auto) 1 0-10 % Neutrophils # (Auto) 5.9 1.8-7.8 X 10^3 Lymphocytes # (Auto) 3.4 1.0-4.0 X 10^3 Monocytes # (Auto) 0.8 0.0-1.0 X 10^3 Eosinophils # (Auto) 0.1 0.0-0.3 10^3/uL Basophils # (Auto) 0.1 0.0-0.1 10^3/uL Sodium Level 136 135-145 MMOL/L Potassium Level 3.8 3.6-5.0 MMOL/L Chloride Level 101 98-107 MMOL/L Carbon Dioxide Level 24 21-32 MMOL/L Anion Gap 11 5-14 MMOL/L Blood Urea Nitrogen 4 L 7-18 MG/DL Creatinine 0.66 0.60-1.30 MG/DL Estimat Glomerular Filtration Rate > 60 BUN/Creatinine Ratio 6 Glucose Level 83 70-105 MG/DL Calcium Level 9.1 8.5-10.1 MG/DL Corrected Calcium 8.7 8.5-10.1 MG/DL Magnesium Level 2.4 1.8-2.4 MG/DL Total Bilirubin 0.7 0.1-1.0 MG/DL Aspartate Amino Transf (AST/SGOT) 18 5-34 U/L Alanine Aminotransferase (ALT/SGPT) 20 0-55 U/L Alkaline Phosphatase 35 L 40-136 U/L C-Reactive Protein High Sensitivity 0.01 0.00-0.50 MG/DL Total Protein 7.1 6.4-8.2 GM/DL Albumin 4.5 3.2-4.5 GM/DL TSH [place] Testing 0.89 0.35-4.94 UIU/ML Salicylates Level < 5.0 L 5.0-20.0 MG/DL Acetaminophen Level < 10 L 10-30 UG/ML Serum Alcohol 165 H <10 MG/DL Micro Results Microbiology 01/02/19 Influenza Types A,B Antigen (NIDA) - Final, Complete My Orders Orders - LIAM FRANCIS MD Acetaminophen (01/02/19 16:43) Alcohol (01/02/19 16:43) Cbc With Automated Diff (01/02/19 16:43) Comprehensive Metabolic Panel (01/02/19 16:43) Hs C Reactive Protein (01/02/19 16:43) Drug Screen Stat (Urine) (01/02/19 16:43) Magnesium (01/02/19 16:43) Salicylate (01/02/19 16:43) Thyroid Analyzer (01/02/19 16:43) Ua Culture If Indicated (01/02/19 16:43) Influenza A And B Antigens (01/02/19 16:43) Ekg Tracing (01/02/19 16:43) Chest Pa/Lat (2 View) (01/02/19 16:43) General/Regular (01/03/19 Breakfast) Vital Signs/I&O Capillary Refill : Diagnostic Imaging Diagonstic Imaging: Xray Plain Films/CT/US/NM/MRI: chest Comments Chest x-ray viewed by me and report reviewed. See report below: NAME: ALICE REYNA [facility] REC#: [id number] PT STATUS: REG ER : 1965 PHYSICIAN: LIAM FRANCIS MD ADMIT DATE: 01/02/19/ER Draft Date of Exam:01/02/19 CHEST PA/LAT (2 VIEW) INDICATION: Hypothermia. COMPARISON: 07/22/2017. FINDINGS: The lungs are clear. Ill-defined nodular opacity over the right lung base is likely due to summation shadow of the ribs and nipple as there is no corresponding abnormality on the lateral view. No pleural effusion or pneumothorax. Hyperaerated lung volume could be physiologic. Normal heart size and pulmonary vasculature. IMPRESSION: No acute process by radiography. Dictated on workstation # [id number] Dict: 01/02/19 1728 Trans: 01/02/19 1732 KB [id number] Interpreted by: RENO HILL MD Departure Impression Primary Impression: Alcohol intoxication Qualified Codes: F10.929 - Alcohol use, unspecified with intoxication, unspecified Additional Impressions: Suicidal ideation Chills Disposition: 01 HOME, SELF-CARE Condition: Stable Departure-Patient Inst. Decision time for Depature: 18:52 Referrals: KARELY PONCE MD (PCP/Family) Primary Care Physician Patient Instructions: ALCOHOL AND SUBSTANCE ABUSE, Suicide Prevention Add. Discharge Instructions: Drink plenty of clear liquids and eat a well-balanced diet. Follow-up with your primary care provider and psychiatric provider on Friday. In the meantime, call [phone] ([phone]) if you have worsening thoughts of suicide or develop a suicidal plan. Alternatively, you may call 911 or return to the emergency room. All discharge instructions reviewed with patient and/or family. Voiced understanding. LIAM FRANCIS MD Jan 02, 2019 18:26
--- NOTE | 2019-01-02 19:04 | NUR ---
Pt. provided a meal tray.
[2019-01-02 19:05] VITALS: BP 131/86
== END 2019-01-02 19:12 | disposition home or self-care (01) ==
LOC: ER 16:00 → EDUNIT# 16:00 → ER 19:12
DX: F10.129 Alcohol abuse with intoxication, unspecified (principal); R45.851 Suicidal ideations; R68.83 Chills (without fever); J44.9 Chronic obstructive pulmonary disease, unspecified; I48.91 Unspecified atrial fibrillation; B19.20 Unspecified viral hepatitis C without hepatic coma; F41.9 Anxiety disorder, unspecified; F32.9 Major depressive disorder, single episode, unspecified; Z87.19 Personal history of other diseases of the digestive system; Z87.820 Personal history of traumatic brain injury; Z77.22 Contact with and (suspected) exposure to environmental tobacco smoke (acute) (chronic); Z98.890 Other specified postprocedural states
CPT/HCPCS: 36415; 71046; 80053; 80306; 80320; 80329; 81000; 83735; 84443; 85025; 86141; 87804; 93005